=== PATIENT | female | born 1965 | race Caucasian/White ===

== ENCOUNTER → 2018-11-23 14:01 | Outpatient (CLI) | payer BC, SELFPAY ==
[2018-11-23 14:31] LABS: Amphetamine/Metha Screen,Urine Negative ng/mL (<1000); Barbiturates Screen,Urine Negative ng/mL (<200); Benzodiazepines Screen,Urine Negative ng/mL (<200); Cannabinoid Screen,Urine Negative ng/mL (<50); Cocaine Screen,Urine Negative ng/mL (<300); Methadone Screen,Urine Negative ng/mL (<300); Opiate Screen,Urine Negative ng/mL (<300); Phencyclidine Screen,Urine Negative ng/mL (<25)
== END ==
PROVIDERS: Visit Provider Nurse Practitioner Family
DX: Z79.899 Other long term (current) drug therapy (principal)
CPT/HCPCS: 80305

== ENCOUNTER → 2019-01-02 17:37 | Outpatient (CLI) | payer BC, SELFPAY ==
[2019-01-02 19:10] LABS: Amphetamine/Metha Screen,Urine Negative ng/mL (<1000); Barbiturates Screen,Urine Negative ng/mL (<200); Benzodiazepines Screen,Urine Negative ng/mL (<200); Cannabinoid Screen,Urine Negative ng/mL (<50); Cocaine Screen,Urine Negative ng/mL (<300); Methadone Screen,Urine Negative ng/mL (<300); Opiate Screen,Urine Negative ng/mL (<300); Phencyclidine Screen,Urine Negative ng/mL (<25)
== END ==
PROVIDERS: Visit Provider Nurse Practitioner Family
DX: Z79.899 Other long term (current) drug therapy (principal)
CPT/HCPCS: 80305

== ENCOUNTER → 2019-01-30 09:17 | Outpatient (CLI) | payer BC, SELFPAY ==
--- NOTE | 2019-01-30 09:24 | MM_ITS ---
MM Dig screening mamm BI w/CAD CAD Screening COMPARISON: Baseline digital mammogram 06/25/2010 INDICATION: There is no personal or family history of breast cancer TECHNIQUE: Standard CC and MLO images were obtained. R2 CAD reviewed. FINDINGS: Diffuse heterogenic fibroglandular densities are seen throughout both breast somewhat lessening the sensitivity of mammography. The findings are bilateral and symmetrical. There is no suspicious lesion and no suspicious microcalcifications. IMPRESSION: Heterogenic dense parenchymal pattern with no suspicious lesion seen BI-RADS Category: 1 Negative RECOMMENDED FOLLOW-UP: 1YR - 1 YEAR FOLLOW-UP (A letter has been sent to the patient regarding results of the study.)
[2019-01-30 15:03] LABS: Basophils % 0.7 % (0.1-2.0); Eosinophils # 0.2 K/mm3 (0.0-0.4); Eosinophils % 2.6 % (0.1-12.0); Hemoglobin 14.5 g/dL (12.2-16.2); Lymphocytes # 1.5 K/mm3 (0.7-4.5); Lymphocytes % 25.3 % (10-50); Mean Corpuscular HGB Conc 30.3 g/dL (31.8-35.4); Mean Corpuscular Hemoglobin 27.5 pg (27.0-31.2); Mean Corpuscular Volume 90.7 fl (81-99); Mean Platelet Volume 8.8 fl (7.4-10.4); Monocytes # 0.3 K/mm3 (0.1-1.0); Monocytes % 5.1 % (1.7-9.3); Neutrophils # 3.8 K/mm3 (1.8-7.8); Neutrophils % 66.3 % (37.0-80.0); Platelet Count 271 K/mm3 (142-424); Red Blood Count 5.29 M/mm3 (4.20-5.40); Red Cell Distribution Width 13.6 % (11.5-17.5); White Blood Count 5.8 K/mm3 (4.8-10.8)
[2019-01-30 15:17] LABS: Alanine Aminotransferase 22 U/L (12-78); Albumin Level 3.5 gm/dL (3.4-5.0); Albumin/Globulin Ratio 1.1 (1.1-1.8); Alkaline Phosphatase 84 U/L (46-116); Anion Gap 14.6 mEq/L (5-15); Aspartate Amino Transferase 12 U/L (15-37); Bilirubin,Total 0.3 mg/dL (0.2-1.0); Blood Urea Nitrogen 14 mg/dL (7-18); Carbon Dioxide 27 mmol/L (21.0-32.0); Chloride 106 mmol/L (98-107); Chol/HDL Ratio 5.5 (1-3.5); Cholesterol 213 mg/dL (140-200); Creatinine,Serum 0.89 mg/dL (0.55-1.02); Estimated Glomerular Filt Rate 66 ml/min (>60); GFR (African American) 80 ML/MIN (>60); Globulin 3.1 gm/dl (1.3-3.2); Glucose 91 mg/dL (74-106); HDL Cholesterol 39 mg/dL (29-89); LDL Cholesterol 149 mg/dL (0-130); Potassium 4.6 mmoL/L (3.5-5.1); Sodium 143 mmol/L (136-145); Total Protein,Serum 6.6 gm/dL (6.4-8.2); Triglycerides 125 mg/dL (30-200); VLDL Cholesterol 25 mg/dL (0-40)
[2019-01-30 16:53] LABS: Erythrocyte Sedimentation Rate 6 mm/hr (0-30)
[2019-01-30 19:03] LABS: Amphetamine/Metha Screen,Urine Negative ng/mL (<1000); Barbiturates Screen,Urine Negative ng/mL (<200); Benzodiazepines Screen,Urine Negative ng/mL (<200); Cannabinoid Screen,Urine Negative ng/mL (<50); Cocaine Screen,Urine Negative ng/mL (<300); Methadone Screen,Urine Negative ng/mL (<300); Opiate Screen,Urine Negative ng/mL (<300); Phencyclidine Screen,Urine Negative ng/mL (<25)
== END ==
PROVIDERS: PCP Emergency Medicine; Visit Provider Nurse Practitioner Family
DX: Z12.31 Encounter for screening mammogram for malignant neoplasm of breast (principal); R53.83 Other fatigue; R25.2 Cramp and spasm; Z79.899 Other long term (current) drug therapy
CPT/HCPCS: 77067; 80053; 80061; 80305; 82652; 84439; 84443; 85025; 85651

== ENCOUNTER → 2019-01-30 14:29 | Outpatient (CLI) | payer BC, SELFPAY | PROVIDERS: Visit Provider Nurse Practitioner Family | DX: R53.83 Other fatigue (principal) | CPT/HCPCS: 80053; 80061; 80305; 82652; 84439; 84443; 85025; 85651 ==

== ENCOUNTER → 2019-05-02 11:42 | Outpatient (CLI) | payer BC, SELFPAY ==
--- NOTE | 2019-05-02 11:46 | XR_ITS ---
PROCEDURE: XR MULTIPLE SPINE 6+V CLINICAL INDICATION: back pain Neck pain, back pain COMPARISON: No exams were available for comparison FINDINGS: Lumbar spine: Mild degenerative disc disease L3-L4 L4-L5 and L5-S1. Flexion and extension views show no abnormal subluxation. There is mild retrolisthesis of L3 on L4 which does not significantly change in flexion or extension. Cervical spine: Multilevel degenerative disc disease at C4-C5 C5-C6 and C6-C7. Facet arthritic changes are present from C2-C7. No fracture or dislocation. Thoracic spine: Mild upper thoracic curvature convex left and midthoracic curvature convex right. Multilevel degenerative disc disease is present in the midthoracic spine with endplate osteophytes anteriorly. No fracture or dislocation. IMPRESSION: Degenerative changes of the cervical, thoracic, and lumbar spine as detailed above Dictated by: Gilberto Sykes MD 05/02/2019 12:58 Signed by: <Electronically signed by Gilberto Sykes MD in [facility]> 05/02/2019 12:58
== END ==
PROVIDERS: PCP Emergency Medicine; Visit Provider Nurse Practitioner Family
DX: M54.6 Pain in thoracic spine (principal); M54.2 Cervicalgia; M54.5 Low back pain; G89.29 Other chronic pain
CPT/HCPCS: 72084

== ENCOUNTER → 2019-07-19 16:37 | Outpatient (CLI) | payer BC, SELFPAY ==
[2019-07-19 20:14] LABS: Amphetamine/Metha Screen,Urine Negative ng/mL (<1000); Barbiturates Screen,Urine Negative ng/mL (<200); Benzodiazepines Screen,Urine Negative ng/mL (<200); Cannabinoid Screen,Urine Negative ng/mL (<50); Cocaine Screen,Urine Negative ng/mL (<300); Methadone Screen,Urine Negative ng/mL (<300); Opiate Screen,Urine Negative ng/mL (<300); Phencyclidine Screen,Urine Negative ng/mL (<25)
== END ==
PROVIDERS: Visit Provider Nurse Practitioner Family
DX: Z79.899 Other long term (current) drug therapy (principal)
CPT/HCPCS: 80305

== ENCOUNTER 2019-08-24 15:30 | Outpatient (RCR) | payer BC, SELFPAY ==
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
== END 2019-08-24 15:35 | disposition home or self-care (01) ==
LOC: PT 15:30
PROVIDERS: Visit Provider Nurse Practitioner Family
DX: M51.36 Other intervertebral disc degeneration, lumbar region (principal); M54.6 Pain in thoracic spine; M54.2 Cervicalgia
CPT/HCPCS: 97010; 97014; 97110; 97163; 97760; G0283

== ENCOUNTER → 2020-04-14 13:31 | Outpatient (CLI) | payer BC, SELFPAY ==
[2020-04-14 15:10] VITALS: PULSE 58; PULSE 63
== END ==
PROVIDERS: PCP Emergency Medicine; Visit Provider Emergency Medicine
DX: J44.9 Chronic obstructive pulmonary disease, unspecified (principal); R06.09 Other forms of dyspnea
CPT/HCPCS: 94060; 94618; 94640; 94727; 94729

== ENCOUNTER → 2020-12-22 15:11 | Outpatient (CLI) | payer BC, SELFPAY ==
[2020-12-22 15:21] LABS: Basophils % 0.4 % (0.1-2.0); Eosinophils # 0.2 K/mm3 (0.0-0.4); Eosinophils % 2.2 % (0.1-12.0); Hematocrit 47.2 % (37.0-47.0); Lymphocytes # 1.6 K/mm3 (0.7-4.5); Lymphocytes % 22.4 % (10-50); Mean Corpuscular HGB Conc 31.8 g/dL (31.8-35.4); Mean Corpuscular Hemoglobin 28.4 pg (27.0-31.2); Mean Corpuscular Volume 89.2 fl (81-99); Mean Platelet Volume 9.5 fl (7.4-10.4); Monocytes # 0.4 K/mm3 (0.1-1.0); Monocytes % 5.8 % (1.7-9.3); Neutrophils # 4.8 K/mm3 (1.8-7.8); Neutrophils % 69.2 % (37.0-80.0); Platelet Count 252 K/mm3 (142-424)
[2020-12-22 15:28] LABS: Chloride 109 mmol/L (98-107)
[2020-12-22 15:29] LABS: Potassium 4.9 mmoL/L (3.5-5.1); Sodium 140 mmol/L (136-145)
[2020-12-22 15:31] LABS: Alanine Aminotransferase 15 U/L (12-78); Alkaline Phosphatase 96 U/L (38-126); Anion Gap 14.9 mEq/L (5-15); Aspartate Amino Transferase 28 U/L (14-36); Bilirubin,Total 0.4 mg/dl (0.2-1.3); Blood Urea Nitrogen 14 mg/dl (7-17); Carbon Dioxide 21 mmol/L (22.0-30.0); Cholesterol 223 mg/dl (140-200); Estimated Glomerular Filt Rate 65 ml/min (>60); GFR (African American) 79 ML/MIN (>60); Triglycerides 100 mg/dl (30-150); VLDL Cholesterol 20 mg/dL (0-40)
[2020-12-22 15:32] LABS: Albumin Level 4.4 g/dl (3.5-5.0); Albumin/Globulin Ratio 1.7 (1.1-1.8); Calcium 9.7 mg/dl (8.4-10.2); Globulin 2.6 g/dL (1.3-3.2); Glucose 99 mg/dl (74-100); HDL Cholesterol 56 mg/dl (40-60)
[2020-12-22 15:42] LABS: 25-OH Vitamin D, Total 39.2 ng/mL (30-100)
[2020-12-22 15:45] LABS: Direct LDL Cholesterol 145.85 mg/dL (100-129)
[2020-12-22 15:59] LABS: Free T4 (Free Thyroxine) 1.57 ng/dl (0.78-2.19)
[2020-12-22 16:06] LABS: Thyroid Stimulating Hormone 3.21 uIU/mL (0.465-4.68)
== END ==
PROVIDERS: Visit Provider Emergency Medicine
DX: G62.9 Polyneuropathy, unspecified (principal); E55.9 Vitamin D deficiency, unspecified
CPT/HCPCS: 80053; 80061; 82306; 84439; 84443; 85025

== ENCOUNTER → 2021-03-30 12:51 | Outpatient (CLI) | payer BC, SELFPAY ==
--- NOTE | 2021-03-30 12:54 | CA_ITS ---
APPROVED REPORT EXAM: Comprehensive 2D, Doppler, and color-flow Echocardiogram [employer] Maker: Purnima Jaquez CRT Ht: 5 ft 6 in Wt: 134lbs BSA: 1.69 BP: 102/64 mmHg Indications: Syncope, smoker, dizziness 2D Dimensions LVOT 1.86 cm (M/F) 1.5-2.5 LA Volume 11.20 mL LA Volume Index 6.60 mL/m2 (M/F) 16-34 M-Mode Dimensions RVDd 2.66 cm (0.9-2.6) LA Diam 2.86 cm (1.9-4.0) LVDd 3.51 cm (3.5-5.7) Ao Diam 3.11 cm (2.0-3.7) LVDs 2.47 cm (3.5-5.7) IVSd 1.47 cm (0.6-1.1) PWd 1.03 cm (0.6-1.1) EF (Teich) 57.60% FS 29.60% EDV (Teich) 51.20 mL TAPSE 1.51 (<1.7) ESV (Teich) 21.70 mL LV Diastology E Decel Time 263.00 (160-240 msec) E/A Ratio 0.62 MED E' 4.90 (< 7 cm/sec) MED A' 11.30 cm/s E'/MED E' Ratio 11.49 (>14) LAT E' 7.20 (<10 cm/sec) LAT A' 21.50 cm/s E/LAT E' Ratio 7.82 (>14) Aortic Valve AO Peak GR. 9.80 mmHg Mitral Valve MV E Max Raji. 56.00 (40-130 cm/s) MV A Velocity 91.00 (40-130 cm/s) E/A Ratio 0.62 MV Decel. Time 263.00 (160-240 ms) MV PHT 77.00 ms Tricuspid Valve TR P. Velocity 217.00 cm/s RAP Estimate 10.00 mmHg RVSP 28.80 mmHg Left Ventricle Left atrium is normal size, left ventricle is normal size, there is no concentric left ventricular hypertrophy, visually estimated ejection fraction 55% with no regional wall motion abnormality, diastolic parameters are inconclusive. Right Ventricle Right atrium and right ventricle are normal size and contractility. Aortic Valve Aortic valve is minimally thickened and fibrosed, there is no aortic stenosis or aortic insufficiency. Mitral Valve Mitral valve is grossly normal, there is trace mitral regurgitation. Tricuspid Valve Tricuspid valve grossly normal, there is trace tricuspid regurgitation, tricuspid regurgitation jet velocity is inadequate for calculation of the right ventricular systolic pressure. Pulmonic Valve Pulmonic valve is poorly visualized. Great Vessels Aortic root is normal size. Pericardium No significant pericardial effusion noted. Conclusion 1. Normal left ventricular size, preserved left ventricular systolic function, visually estimated ejection fraction 55% with no regional wall motion abnormality, diastolic parameters are inconclusive. 2. Trace mitral and tricuspid regurgitation. 3. No significant pericardial effusion noted. Electronically signed by : Darrel Kelly, 03/30/2021 21:54:30
--- NOTE | 2021-03-30 13:27 | MR_ITS ---
PROCEDURE: MR HEAD/BRAIN WO CON CLINICAL INDICATION: dizziness Frequent falls COMPARISON: No exams were available for comparison TECHNIQUE: Routine multiplanar multi echo sequences are performed without gadolinium enhancement. FINDINGS: No restricted diffusion that would indicate an area of acute infarction. No midline shift, mass effect, intracranial hemorrhage, or hydrocephalus. The cerebellopontine angles, cerebellum, and brainstem have an unremarkable appearance. There are 2 tiny T2 white matter hyperintensities in the right frontal lobe nonspecific and may represent small ischemic gliotic foci. The pituitary, optic chiasm, corpus callosum, and craniocervical junction have an unremarkable appearance. There is degenerative disc disease in the cervical spine with 2-3 mm retrolisthesis of C4 on C5 with canal stenosis at that level. No mastoid effusion or sinus air-fluid level. No obvious orbital mass. IMPRESSION: No acute intracranial findings. Canal stenosis with degenerative disc disease at C4-C5 Dictated by: Gilberto Sykes MD 03/30/2021 18:44 Gilberto Sykes MD in [facility] 03/30/2021 18:44
== END ==
PROVIDERS: PCP Emergency Medicine; Visit Provider Emergency Medicine
DX: R55 Syncope and collapse (principal); R42 Dizziness and giddiness
CPT/HCPCS: 70551; 93306

== ENCOUNTER → 2021-07-17 12:52 | Outpatient (CLI) | payer BC, SELFPAY ==
--- NOTE | 2021-07-17 12:58 | XR_ITS ---
PROCEDURE: XR HIP RT 2-3V W/PELVIS CLINICAL INDICATION: hip pain COMPARISON: CR XR HIP LT 2-3V W/PELVIS from 07/17/2021 FINDINGS: No fracture or dislocation is evident. There is minor asymmetrical joint space narrowing. The SI joints and symphysis pubis appear grossly normal. No lytic or blastic change. Unremarkable soft tissues. IMPRESSION: No acute findings. Minor osteoarthritic change right hip Dictated by: Dr. Zach Quiroga MD 07/17/2021 13:26 Dr. Zach Quiroga MD in [place] 07/17/2021 13:26
--- NOTE | 2021-07-17 12:58 | XR_ITS ---
PROCEDURE: XR HIP LT 2-3V W/PELVIS CLINICAL INDICATION: hip pain COMPARISON: Right hip same date FINDINGS: No fracture or dislocation is evident. No significant degenerative change. No lytic or blastic change. Unremarkable soft tissues. IMPRESSION: No acute findings. Dictated by: Dr. Zach Quiroga MD 07/17/2021 13:26 Dr. Zach Quiroga MD in [facility] 07/17/2021 13:26
== END ==
PROVIDERS: PCP Emergency Medicine; Visit Provider Emergency Medicine
DX: M25.552 Pain in left hip (principal); M25.551 Pain in right hip; R42 Dizziness and giddiness
CPT/HCPCS: 73502; 93225; 93226

== ENCOUNTER → 2021-09-30 13:44 | Outpatient (CLI) | payer BC, SELFPAY ==
--- NOTE | 2021-09-30 13:44 | MR_ITS ---
FINAL REPORT CLINICAL HISTORY: dizziness, falls 12ml prohance injected lot:[id number] EXP:JUN 2023 COMPARISON: 03/30/2021 FINDINGS: Multiplanar MR imaging of the brain was performed without and with contrast. There is no evidence of intracranial hemorrhage or mass. There are few tiny subtle scattered foci of increased signal in the deep white matter which are nonspecific, may represent mild chronic ischemic/gliotic changes. No abnormal extra-axial fluid collection is seen. The ventricular size is within normal limits. There is no evidence of shift of the midline structures. The posterior fossa and brainstem have an unremarkable appearance. No area of abnormal restricted diffusion is identified. No abnormal contrast enhancement is seen. Normal major vessel vascular flow voids are noted. There is mild chronic frontal and ethmoid sinusitis. No fluid levels are identified. IMPRESSION: No acute intracranial abnormality identified. Mild chronic ischemic/gliotic changes. Reviewed, Interpreted and Dictated by Cory Soto MD Transcribed by Aby Becerra Authenticated by Cory Soto MD on 09/30/2021 04:36:30 PM [facility]
--- NOTE | 2021-09-30 14:47 | CA_ITS ---
FINAL REPORT TECHNIQUE: Color Doppler, duplex Doppler and hernandez scale sonography of the bilateral neck arterial vasculature was performed. Velocities were measured in the carotid arteries. Stenosis evaluation based on the validated velocity criteria. CLINICAL HISTORY: Bruit, Dizziness, Smoker FINDINGS: The peak systolic velocity of the right common carotid artery is 67 cm/s. The peak systolic velocity of the right internal carotid artery is 97 cm/s and end diastolic velocity 44 cm/s. A small amount of plaque is present. The right external carotid artery is patent. The right vertebral artery is patent with antegrade flow. The peak systolic velocity of the left common carotid artery is 78 cm/s. The peak systolic velocity of the left internal carotid artery is 174 cm/s and end diastolic velocity 75 cm/s. A moderate amount of plaque is present. The left external carotid artery is patent.The left vertebral artery is patent with antegrade flow. IMPRESSION: 50-69% carotid stenosis on the left. Less than 50% carotid stenosis on the right. If indicated, CTA or MRA could further evaluate. Reviewed, Interpreted and Dictated by Cory Soto MD Transcribed by Aby Becerra Authenticated by Cory Soto MD on 09/30/2021 04:36:37 PM [facility]
== END ==
PROVIDERS: PCP Emergency Medicine; Visit Provider Emergency Medicine
DX: R42 Dizziness and giddiness (principal); R09.89 Other specified symptoms and signs involving the circulatory and respiratory systems
CPT/HCPCS: 70553; 93880; A9576

== ENCOUNTER → 2021-10-15 15:37 | Outpatient (CLI) | payer BC, SELFPAY ==
--- NOTE | 2021-10-15 15:37 | MR_ITS ---
FINAL REPORT CLINICAL HISTORY: abn MRI head. LIGHTHEADEDNESS WHEN WALKING X1YR. PRIOR MR 09-30-21 FINDINGS: Multiple projection images of the brain arterial vasculature were obtained without contrast. The raw data images were also reviewed. The distal internal carotid, distal vertebral and basilar arteries have an unremarkable appearance without evidence of significant stenosis or occlusion. The proximal anterior, middle and posterior cerebral arteries have an unremarkable appearance. There is no evidence of significant stenosis or major branch occlusion. No aneurysm or vascular malformation is identified. IMPRESSION: Unremarkable MR angiogram of the head. Reviewed, Interpreted and Dictated by Ihsan Brooks III, MD Transcribed by Aby Becerra Authenticated by Ihsan Brooks III, MD on 10/15/2021 04:36:57 PM [facility]
== END ==
PROVIDERS: PCP Emergency Medicine; Visit Provider Emergency Medicine
DX: R93.0 Abnormal findings on diagnostic imaging of skull and head, not elsewhere classified (principal); R42 Dizziness and giddiness
CPT/HCPCS: 70544

== ENCOUNTER → 2022-11-02 14:47 | Outpatient (CLI) | payer BC, SELFPAY ==
--- NOTE | 2022-11-02 14:47 | MR_ITS ---
FINAL REPORT TECHNIQUE: Multiplanar and multisequence MR imaging was performed through the lumbar spine before and after contrast administration. CLINICAL HISTORY: pain LOWER BACK PAIN WITH LEFT LEG NUMBNESS X 6 MONTHS FINDINGS: There is grade 1 anterior spondylolisthesis of L4 on 5. The vertebral body heights are preserved. There is no bone marrow edema. There are degenerative endplate changes, most pronounced at L4-5 and L5-S1. Bone marrow is otherwise normal. The cord terminates at L2. There is normal signal within the distal cord. There is no abnormal enhancement in the distal cord. There is no acute paraspinal abnormality. There is no loculated fluid collection. L1-L2: No evidence of disc herniation, canal stenosis or neural foraminal narrowing. L2-L3: An annular disc bulge is present with bilateral facet osteoarthropathy. There is mild left neural foraminal narrowing. L3-L4: An annular disc bulge is present with degenerative endplate changes and facet osteoarthropathy. There is mild left greater than right neural foraminal narrowing. L4-L5: An annular disc bulge is present with degenerative endplate changes and facet osteoarthropathy. There is mild right and moderate left neural foraminal narrowing. L5-S1: An annular disc bulge is present with degenerative endplate changes and facet osteoarthropathy. There is moderate to severe right and mild left neural foraminal narrowing. IMPRESSION: Grade 1 anterior spondylolisthesis of L4 on 5. Multilevel degenerative disc disease. Reviewed, Interpreted and Dictated by Debbie Patel MD Transcribed by Aby Becerra Authenticated and [facility]
[2022-11-02 16:45] LABS: Basophils # 0.1 K/mm3 (0-0.2); Eosinophils # 0.1 K/mm3 (0.0-0.4); Eosinophils % 1.9 % (0.1-12.0); Hematocrit 43.2 % (37.0-47.0); Hemoglobin 13.8 g/dL (12.2-16.2); Lymphocytes # 1.7 K/mm3 (0.7-4.5); Lymphocytes % 27.9 % (10-50); Mean Corpuscular HGB Conc 31.9 g/dL (31.8-35.4); Mean Corpuscular Hemoglobin 28.4 pg (27.0-31.2); Mean Corpuscular Volume 88.9 fl (81-99); Monocytes # 0.4 K/mm3 (0.1-1.0); Monocytes % 6.1 % (1.7-9.3); Neutrophils # 3.9 K/mm3 (1.8-7.8); Neutrophils % 63.1 % (37.0-80.0); Platelet Count 253 K/mm3 (142-424); Red Blood Count 4.86 M/mm3 (4.20-5.40); Red Cell Distribution Width 13.8 % (11.5-17.5); White Blood Count 6.1 K/mm3 (4.8-10.8)
[2022-11-02 17:00] LABS: Alanine Aminotransferase 16 U/L (12-78); Albumin Level 4.3 g/dl (3.5-5.0); Albumin/Globulin Ratio 1.7 (1.1-1.8); Alkaline Phosphatase 82 U/L (38-126); Anion Gap 3.8 mEq/L (5-15); Aspartate Amino Transferase 24 U/L (14-36); Bilirubin,Total 0.6 mg/dl (0.2-1.3); Blood Urea Nitrogen 15 mg/dl (7-17); Calcium 9.1 mg/dl (8.4-10.2); Carbon Dioxide 29 mmol/L (22.0-30.0); Chloride 113 mmol/L (98-107); Chol/HDL Ratio 4.5 (1-3.5); Cholesterol 234 mg/dl (140-200); Estimated Glomerular Filt Rate 65 ml/min (>60); GFR (African American) 78 ML/MIN (>60); Globulin 2.5 g/dL (1.3-3.2); Glucose 87 mg/dl (74-100); HDL Cholesterol 52 mg/dl (40-60); Potassium 4.8 mmoL/L (3.5-5.1); Sodium 141 mmol/L (136-145); Total Protein,Serum 6.8 g/dl (6.3-8.2); Triglycerides 106 mg/dl (30-150); VLDL Cholesterol 21 mg/dL (0-40)
[2022-11-02 17:11] LABS: Direct LDL Cholesterol 153.04 mg/dL (100-129)
[2022-11-02 17:17] LABS: Free T4 (Free Thyroxine) 1.15 ng/dl (0.78-2.19)
[2022-11-02 17:18] LABS: 25-OH Vitamin D, Total 31.7 ng/mL (30-100)
[2022-11-02 18:50] LABS: Erythrocyte Sedimentation Rate 6 mm/hr (0-30)
== END ==
PROVIDERS: PCP Emergency Medicine; Visit Provider Emergency Medicine
DX: E03.9 Hypothyroidism, unspecified (principal); M54.16 Radiculopathy, lumbar region; R53.83 Other fatigue; K59.00 Constipation, unspecified
CPT/HCPCS: 36415; 72158; 76376; 80053; 80061; 82306; 84439; 84443; 85025; 85651; A9576

== ENCOUNTER 2022-11-29 15:00 | Outpatient (RCR) | payer BC, SELFPAY ==
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
--- NOTE | 2022-10-28 13:37 | HMH.RHREAS ---
Rehab Reassessment Rehab OP Re-assessment Start: 10/28/22 11:26 Freq: Status: Active Protocol: Document 10/28/22 11:27 MULUNORANATHALY (Rec: 10/28/22 11:44 DONNANATHALY [id number]) E-signed By Amarjit Flores, PT Rehab Re-assessment Subjective Subjective Pt reports 5/10 LBP on VAS and feels 80% better overall functionally since I eval Objective Objective Notes AROM: LUMBAR SPINE FLX 0-35, EXT 0-20, B/L SB 0-25 MMT: LEFT HIP FLX 4-/5, LEFT KNEE EXT 4/5, L KNEE FLX 4/5, L DF 4+-5/5 TTP: LEFT QL 1-2/4, LEFT PIRI/ GLUT 1/4 Assessment Progress Assessment Progressing as Expected Assessment Notes IMPROVED AROM, STRENGTH, AND TTP Patient goals met STG'S 2/2 LTG'S 3/7 Goals Not Met LTG'S 4/7 Plan Plan Pt to continue w/skilled P.T. to make further improvements in AROM, strength, and TTP to allow for optimal function Frequency of Therapy 1-2x/wk Duration of therapy 3-5wks Time and Billing Re-Eval Time 12 Re-Eval Billing Units 1 PHYSICIAN CERTIFICATION: I certify the specified therapy services for Sonja Russell are required, authorized, and reviewed every 30 days.
== END 2022-11-29 15:05 | disposition home or self-care (01) ==
LOC: PT 15:00
PROVIDERS: PCP Emergency Medicine; Visit Provider Emergency Medicine
DX: M54.16 Radiculopathy, lumbar region (principal)
CPT/HCPCS: 97010; 97014; 97110; 97163; 97164; 97530; G0283

== ENCOUNTER → 2023-01-18 11:58 | Outpatient (CLI) | payer BC, SELFPAY ==
[2023-01-18 13:31] LABS: Adenovirus,PCR Not Detected (NotDetected); Bordetella Pertussis Not Detected (NotDetected); Chlamydophila Pneumoniae, PCR Not Detected (NotDetected); Coronavirus 19, PCR Not Detected (NotDetected); Coronavirus 229E Not Detected (NotDetected); Coronavirus NL63 Not Detected (NotDetected); Coronavirus OC43 Not Detected (NotDetected); Coronovirus HKU1,PCR Not Detected (NotDetected); Human Metapneumovirus Not Detected (NotDetected); Influenza A, PCR Not Detected (NotDetected); Influenza AH1, 2009 Not Detected (NotDetected); Influenza AH1, PCR Not Detected (NotDetected); Influenza AH3,PCR Not Detected (NotDetected); Influenza B, PCR Not Detected (NotDetected); Mycoplasma Pneumoniae, PCR Not Detected (NotDetected); Parainfluenza 1, PCR Not Detected (NotDetected); Parainfluenza 2, PCR Not Detected (NotDetected); Parainfluenza 3, PCR Not Detected (NotDetected); Parainfluenza 4, PCR Not Detected (NotDetected); Respiratory Syncytial Virus Not Detected (NotDetected)
[2023-01-19 01:17] LABS: Rhinovirus/Enterovirus Detected (NotDetected)
== END ==
PROVIDERS: PCP Emergency Medicine; Visit Provider Emergency Medicine
DX: R06.09 Other forms of dyspnea (principal); R05.9 Cough, unspecified; R51.9 Headache, unspecified; R19.7 Diarrhea, unspecified; R11.0 Nausea; E86.0 Dehydration; B34.1 Enterovirus infection, unspecified
CPT/HCPCS: 87581; 87632; 87635; 87798; C9803; U0003; U0005

== ENCOUNTER → 2023-04-20 09:41 | Outpatient (POV) | payer BC, SELFPAY ==
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
[2023-04-20 10:07] VITALS: BP 148/98; PULSE 81; RESP 18; O2SAT 97; BMI 19.7
== END ==
PROVIDERS: PCP Emergency Medicine; Visit Provider Nurse Practitioner Family
DX: M54.41 Lumbago with sciatica, right side (principal); G89.29 Other chronic pain; M51.16 Intervertebral disc disorders with radiculopathy, lumbar region; M47.26 Other spondylosis with radiculopathy, lumbar region
CPT/HCPCS: 99202; G0463

== ENCOUNTER 2023-05-17 10:40 | Day surgery (SDC) | payer BC, SELFPAY ==
[2023-05-17 11:24] VITALS: BP 136/85; PULSE 73; RESP 16; TEMP 36.4; O2SAT 97; BMI 19.7
[2023-05-17 11:54] VITALS: BP 130/80; PULSE 76; RESP 18; O2SAT 98
[2023-05-17 11:55] VITALS: BP 130/80; PULSE 75; RESP 18; O2SAT 98
--- NOTE | 2023-05-17 11:59 | EXP.PAIN.PRO ---
Procedure Date: 05/17/23 Time: 11:45 Anesthesiologist:: Julio Schroeder CRNA Complications:: None Pre-procedure Diagnosis:: Degenerative disc lumbar spine multilevels. Lumbar radiculopathy Post-procedure Diagnosis:: Same. Indications for Procedure:: Patient is a very pleasant 58-year-old female comes our clinic today for L5-S1 lumbar epidural steroid injection. Patient complains of low back pain as well as bilateral hip and leg radicular symptoms. Weakness in the lower legs. She rates her pain 6/10. Procedure Details:: Procedure: Lumbar epidural steroid injection under fluoroscopy Informed consent was obtained and the risks and benefits of the procedure were explained to the patient. The patient was taken to the procedure room and noninvasive monitors placed, including noninvasive blood pressure cuff and pulse oximeter. The back was viewed using C-arm Fluoroscopy and prepped using Chloraprep as a cleansing solution and the L4-L5 interspace was palpated. Skin and subcutaneous tissues were anesthetized using lidocaine 1.5% and a 25-gauge needle. After this, an 18-gauge Touhy epidural needle was placed into the L4-L5 interspace and advanced using fluoroscopic guidance and loss of resistance to air until the epidural space was encountered. After confirmation of needle placement in the epidural space, with dye, a solution containing normal saline, 3 mL and Depo-Medrol 80 mg were incrementally injected into the lumbar epidural space. The patient tolerated the procedure well with no complications. The patient was observed in the Pain Clinic and then discharged home neurologically intact. Plan and Disposition:: Patient was discharged without incident.
[2023-05-17 12:06] VITALS: BP 121/91; PULSE 71; RESP 20
== END 2023-05-17 12:08 | disposition home or self-care (01) ==
PROVIDERS: PCP Emergency Medicine; Visit Provider Nurse Anesthetist, Certified Registered
DX: M51.16 Intervertebral disc disorders with radiculopathy, lumbar region (principal)
CPT/HCPCS: 62323; J1040

== ENCOUNTER → 2023-06-01 13:30 | Outpatient (POV) | payer BC, SELFPAY ==
--- NOTE | 2023-06-01 14:05 | EXP.PAIN.SOA ---
[facility] Pain Management SOAP Note Subjective:: Patient is a pleasant 58-year-old female who presents today for follow-up of lumbar epidural steroid injection L4-L5 on 05/17/2023. We are currently treating the patient for degenerative disc disease of lumbar spine with lumbar radiculopathy symptoms, lumbar facet arthropathy, bilateral hip pain. Today she rates her pain a 7 out of 10. Patient states she has had 100% improvement of her low back and leg pain following this injection. She states that she has been able to move around and increase her activity with decreased pain symptoms. Patient does state overall today she is doing well. Patient is currently managed with gabapentin [address] Da Silva's office. She denies any side effects from this medication. Patient was also prescribed compounding cream. Her Vincent is [id number]. Its been reviewed and appropriate. Review of Systems: General: No recent weight changes, no fever, no sleep disturbances Respiratory: No cough, no shortness of air, no recurring pulmonary infections Cardiovascular/peripheral vascular: No chest pain, no palpitations, no edema, no shortness of breath Gastrointestinal: No new onset incontinence, normal bowel movements reported Genitourinary: No new onset incontinence Musculoskeletal: Low back pain Psychiatric: [Normal mood/affect] Neurological: [Denies weakness in extremities], [denies balance issues] Objective:: Physical Exam: General: Alert and oriented x3, no acute distress, pleasant and cooperative Lungs: Respirations even and unlabored, symmetrical chest expansion Eyes: PERRL Musculoskeletal: Flexion and extension of lumbar [spine] somewhat guarded secondary to pain, [antalgic gait noted] Neurological: Speech clear, no gross sensory deficit Assessment:: Degenerative disc disease of lumbar spine with lumbar radiculopathy symptoms, lumbar facet arthropathy, bilateral hip pain Plan:: Patient has had significant improvement following her lumbar epidural steroid injection and does not require any additional injection therapy at today's visit. Patient will return to clinic in 1 month for reevaluation of symptoms and plan of care. Patient has been instructed to contact the clinic with any concerns before the next appointment. Dr. Green has reviewed this note and agrees with this plan of care. This note was dictated using voice recognition software and make contain errors or omissions. [facility] Disclaimer: The information contained in this section may have been updated after the patient was seen, as this information can be updated by other users. Medical History Back Pain DDD (degenerative disc disease), lumbar Hx of fracture of leg Surgical History History of appendectomy Family History Other No significant family history Social History (Updated 05/17/23 @ 11:24 by Samir Forbes RN) Smoking Status: Current every day smoker tobacco type: cigarettes packs per day: 2 pack-years: 44 alcohol intake: never substance use type: denies use current occupational status: unemployed Travel in the last 8 weeks: None household members: spouse housing: apartment marital status: education level: high school service: No caffeine: Yes special aldo needs: No do you feel safe at home: Yes victim of physical abuse: No victim of emotional abuse: No victim of sexual abuse: No would you like helpful sources: No
[2023-06-01 14:34] VITALS: BP 130/84; PULSE 88; RESP 20; O2SAT 97; BMI 19.7
== END ==
PROVIDERS: PCP Emergency Medicine; Visit Provider Nurse Practitioner Family
DX: M51.16 Intervertebral disc disorders with radiculopathy, lumbar region (principal); M47.26 Other spondylosis with radiculopathy, lumbar region; M25.551 Pain in right hip; M25.552 Pain in left hip
CPT/HCPCS: 99212; G0463

== ENCOUNTER → 2023-07-13 11:01 | Outpatient (POV) | payer BC, SELFPAY ==
--- NOTE | 2023-07-13 11:14 | EXP.PAIN.SOA ---
[facility] Pain Management SOAP Note Subjective:: Patient is a pleasant 58-year-old female who presents today for 1 month follow-up. We are currently treating the patient for degenerative disc disease of lumbar spine with lumbar radiculopathy symptoms, lumbar facet arthropathy, bilateral hip pain. Today she rates her pain a 6 out of 10. Patient denies any new trauma or injury from her last office visit. She did have a lumbar epidural L4-L5 back in the middle of May that did provide 100% improvement. She does state that over the last months she has started to have increased aching along with numbness and tingling into her bilateral legs. Patient states that it is getting back to its baseline. She states the pain does make it difficult to perform activities of daily living such as cooking and cleaning. She is interested in repeating her prior injection. She is currently managed with gabapentin [address] Da Silva's office. She denies any side effects from this medication. Patient was also prescribed compounding cream. She does state that the cream does make a significant improvement however she does not have any additional refills and is requesting some at today's visit. Her Vincent has been reviewed and appropriate. Review of Systems: General: No recent weight changes, no fever, no sleep disturbances Respiratory: No cough, no shortness of air, no recurring pulmonary infections Cardiovascular/peripheral vascular: No chest pain, no palpitations, no edema, no shortness of breath Gastrointestinal: No new onset incontinence, normal bowel movements reported Genitourinary: No new onset incontinence Musculoskeletal: Low back pain, bilateral leg pain Psychiatric: [Normal mood/affect] Neurological: [Denies weakness in extremities], [denies balance issues] Objective:: Physical Exam: General: Alert and oriented x3, no acute distress, pleasant and cooperative Lungs: Respirations even and unlabored, symmetrical chest expansion Eyes: PERRL Musculoskeletal: Flexion and extension of lumbar [spine] somewhat guarded secondary to pain, [antalgic gait noted] Neurological: Speech clear, no gross sensory deficit Assessment:: Degenerative disc disease of lumbar spine with lumbar radiculopathy symptoms, lumbar facet arthropathy, bilateral hip pain Plan:: Patient is experiencing worsening pain in her low back and legs with limited range of motion of her lumbar spine. I have discussed with the patient that she may benefit from repeat lumbar epidural steroid injection. Risk and benefits were discussed with the patient and she would like to proceed forward with this plan of care. Patient is not currently on any blood thinners. Patient did have 100% improvement with her last lumbar epidural lasting approximately a month and a half. I will also make sure that she does have refills of her compounded cream. Patient will be scheduled for an LESI L4-L5. Patient has been instructed to contact the clinic with any concerns before the next appointment. Dr. Green has reviewed this note and agrees with this plan of care. This note was dictated using voice recognition software and make contain errors or omissions. [facility] Disclaimer: The information contained in this section may have been updated after the patient was seen, as this information can be updated by other users. Medical History Back Pain DDD (degenerative disc disease), lumbar Hx of fracture of leg Surgical History History of appendectomy Family History Other No significant family history Social History (Updated 05/17/23 @ 11:24 by Samir Forbes RN) Smoking Status: Current every day smoker tobacco type: cigarettes packs per day: 2 alcohol intake: never substance use type: denies use current occupational status: other Travel in the last 8
[2023-07-13 12:22] VITALS: BP 139/96; PULSE 92; RESP 18; O2SAT 96
== END ==
LOC: SC.PAIN 11:01
PROVIDERS: PCP Emergency Medicine; Visit Provider Nurse Practitioner Family
DX: M51.16 Intervertebral disc disorders with radiculopathy, lumbar region (principal); M47.26 Other spondylosis with radiculopathy, lumbar region; M25.551 Pain in right hip; M25.552 Pain in left hip
CPT/HCPCS: 99212; G0463

== ENCOUNTER 2023-08-23 10:30 | Day surgery (SDC) | payer BC, SELFPAY ==
[2023-08-23 10:46] VITALS: BP 142/91; PULSE 78; RESP 18; TEMP 36.4; O2SAT 98; BMI 22.6
[2023-08-23 10:57] VITALS: BP 149/79; PULSE 81; RESP 18; O2SAT 98
[2023-08-23 10:58] VITALS: BP 149/79; PULSE 82; RESP 18; O2SAT 97
--- NOTE | 2023-08-23 11:03 | EXP.PAIN.PRO ---
Procedure Date: 08/23/23 Time: 10:55 Anesthesiologist:: Julio Schroeder CRNA Complications:: None Pre-procedure Diagnosis:: Degenerative disc lumbar spine multilevels. Lumbar radiculopathy. Lumbar facet arthropathy. Lumbar spondylosis. Post-procedure Diagnosis:: Same. Indications for Procedure:: Patient is a very pleasant 58-year-old female comes our clinic today for lumbar epidural steroid injection at L4-5 level. Patient had significant improvement terms of her overall low back pain as well as bilateral hip and leg radicular symptoms with previous injections at the same level. She rates her pain today 5/10. Procedure Details:: Procedure: Lumbar epidural steroid injection under fluoroscopy Informed consent was obtained and the risks and benefits of the procedure were explained to the patient. The patient was taken to the procedure room and noninvasive monitors placed, including noninvasive blood pressure cuff and pulse oximeter. The back was viewed using C-arm Fluoroscopy and prepped using Chloraprep as a cleansing solution and the L4-L5 interspace was palpated. Skin and subcutaneous tissues were anesthetized using lidocaine 1.5% and a 25-gauge needle. After this, an 18-gauge Touhy epidural needle was placed into the L4-L5 interspace and advanced using fluoroscopic guidance and loss of resistance to air until the epidural space was encountered. After confirmation of needle placement in the epidural space, with dye, a solution containing normal saline, 3 mL and Depo-Medrol 80 mg were incrementally injected into the lumbar epidural space. The patient tolerated the procedure well with no complications. The patient was observed in the Pain Clinic and then discharged home neurologically intact. Plan and Disposition:: Patient was discharged without incident.
[2023-08-23 11:10] VITALS: BP 125/89; PULSE 77; RESP 20; O2SAT 97
== END 2023-08-23 11:02 | disposition home or self-care (01) ==
PROVIDERS: PCP Family Medicine; Visit Provider Nurse Anesthetist, Certified Registered
DX: M51.16 Intervertebral disc disorders with radiculopathy, lumbar region (principal); M47.26 Other spondylosis with radiculopathy, lumbar region
CPT/HCPCS: 62323; J1040

== ENCOUNTER 2023-09-08 09:43 | Outpatient (CLI) | payer BC, SELFPAY ==
[2023-09-08 23:35] LABS: Amphetamine/Metha Screen,Urine Negative ng/ml (<1000); Barbiturates Screen,Urine Negative ng/ml (<200); Benzodiazepines Screen,Urine Negative ng/ml (<200); Cannabinoid Screen,Urine Negative ng/ml (<50); Cocaine Screen,Urine Negative ng/ml (<300); Methadone Screen,Urine Negative ng/ml (<300); Opiate Screen,Urine Negative ng/ml (<300); Phencyclidine Screen,Urine Negative ng/ml (<25)
== END 2023-09-08 23:59 ==
LOC: LAB.DROPOF 09-09 10:38
PROVIDERS: PCP Family Medicine; Visit Provider Family Medicine
DX: Z79.899 Other long term (current) drug therapy (principal)
CPT/HCPCS: 80307

== ENCOUNTER → 2023-09-09 11:22 | Outpatient (POV) | payer BC, SELFPAY ==
[2023-09-09 11:59] VITALS: BP 136/90; PULSE 80; RESP 18; O2SAT 95; BMI 21.6
--- NOTE | 2023-09-09 12:02 | EXP.PAIN.SOA ---
[facility] Pain Management SOAP Note Subjective:: Patient is a pleasant 58-year-old female who presents today for follow-up of lumbar epidural steroid injection L4-L5 on 08/23/2023. We are currently treating the patient for degenerative disc disease of lumbar spine with lumbar radiculopathy symptoms, lumbar facet arthropathy, bilateral hip pain. Today she rates her pain a 7 out of 10. Patient states that she has had at least 90% improvement following this injection and feels like it still continuing to provide additional relief. Patient states she has been able to increase her activity with decreased pain and feels overall more functional. She does state today her pain is all in and around her left hip. Patient describes this as an aching sensation that is worse with increased activity and does give sensations of popping and catching with ambulation. Patient does state that in the past she has had testing on her legs and that was found to have degenerative joint disease throughout. Patient denies any recent imaging of her hips. Patient does state that she feels like it is most likely arthritis related. Patient does state the pain interferes with her ability perform activities of daily living such as cooking and cleaning. Patient does state that she was feels like her leg can go numb and that she is frequently dragging this leg and sometimes it will cause her to stumble. Patient is currently prescribed gabapentin 800 mg from her PCP. Patient denies any side effects from this medication. Patient was tried on the compounded cream however did not notice significant relief. Her Vincent has been reviewed and is appropriate. Review of Systems: General: No recent weight changes, no fever, no sleep disturbances Respiratory: No cough, no shortness of air, no recurring pulmonary infections Cardiovascular/peripheral vascular: No chest pain, no palpitations, no edema, no shortness of breath Gastrointestinal: No new onset incontinence, normal bowel movements reported Genitourinary: No new onset incontinence Musculoskeletal: Left hip pain Psychiatric: [Normal mood/affect] Neurological: [Denies weakness in extremities], [denies balance issues] Objective:: Physical Exam: General: Alert and oriented x3, no acute distress, pleasant and cooperative Lungs: Respirations even and unlabored, symmetrical chest expansion Eyes: PERRL Musculoskeletal: Flexion and extension of left hip somewhat guarded secondary to pain, [antalgic gait noted] Neurological: Speech clear, no gross sensory deficit Assessment:: Degenerative disc disease of lumbar spine with lumbar radiculopathy symptoms, lumbar facet arthropathy, bilateral hip pain Plan:: Patient is experiencing worsening pain in her left hip with limited range of motion. I have discussed with the patient that she may benefit from intra-articular hip injection. Risk and benefits were discussed with the patient and she would like to proceed forward with this plan of care. Patient will be scheduled for an intra-articular hip injection left-sided. Patient has been instructed to contact the clinic with any concerns before the next appointment. Dr. Green has reviewed this note and agrees with this plan of care. This note was dictated using voice recognition software and make contain errors or omissions. [facility] Disclaimer: The information contained in this section may have been updated after the patient was seen, as this information can be updated by other users. Medical History Back Pain DDD (degenerative disc disease), lumbar Hx of fracture of leg right Surgical History History of appendectomy Family History Other No significant family history Social History Smoking Status: Current every day smoker tobacco type: cigarettes packs per day: 2 alcohol intake: never substance use type: denies use current occupational status: other Travel in the last 8 weeks: None household members: spouse housing: apartment marital status: education level: high school service: No caffeine: Yes special aldo needs: No do you feel safe at home: Yes victim of physical abuse: No victim of emotional abuse: No victim of sexual abuse: No would you like helpful sources: No
== END ==
LOC: SC.PAIN 11:22
PROVIDERS: PCP Family Medicine; Visit Provider Nurse Practitioner Family
DX: M51.16 Intervertebral disc disorders with radiculopathy, lumbar region (principal); M47.26 Other spondylosis with radiculopathy, lumbar region; M25.551 Pain in right hip; M25.552 Pain in left hip
CPT/HCPCS: 99212; G0463

== ENCOUNTER 2023-09-27 10:33 | Day surgery (SDC) | payer BC, SELFPAY ==
[2023-09-27 10:45] VITALS: BP 144/93; PULSE 88; RESP 18; TEMP 36.3; O2SAT 99; BMI 23.0
[2023-09-27] MEDS: methylPREDNISolone ACETATE 80MG/ML VIAL 80 MG (10:59)
[2023-09-27] MEDS: BUPIVACAINE 0.25% 10ML INJ 25 MG IJ (10:59)
[2023-09-27] MEDS: LIDOCAINE 1% 5ML PF VIAL 5 ML (10:59)
[2023-09-27 11:10] VITALS: BP 139/89; PULSE 81; RESP 18; O2SAT 99
--- NOTE | 2023-09-27 11:31 | EXP.PAIN.PRO ---
Procedure Date: 09/27/23 Time: 11:05 Anesthesiologist:: Julio Schroeder CRNA Complications:: None Pre-procedure Diagnosis:: Chronic left hip pain. Post-procedure Diagnosis:: Same. Indications for Procedure:: Patient presents today for left intra-articular hip injection. Patient describes left hip pain as intermittent, dull, aching at times. Patient has some associated left leg radicular symptoms as well. Patient responded very well to a recent lumbar epidural steroid injection at the L4-5 level. She has documented disc disease lumbar spine with foraminal stenosis on the left side at 4 5 and 5 S1. I discussed in detail with the patient regarding this injection. I think it would be appropriate to revisit the lumbar epidural steroid injection if in fact this does not bring her any moderate to significant relief going forward. Procedure Details:: Details of the procedure were explained to the patient. The patient was taken to procedure room placed in the supine position. The area over the left hip was cleaned using chlorhexidine as a cleansing solution. Using fluoroscopy guidance a 3 and half inch 22-gauge spinal needle was used to access the left hip joint without difficulty. After negative aspiration 3 cc of 1% lidocaine +3 cc of 0.25% Marcaine and 40 mg of Depo-Medrol was injected. Needle was withdrawn. Band-Aid applied. Patient tolerated procedure without difficulty. There are no complications. Plan and Disposition:: Patient was discharged without incident.
== END 2023-09-27 11:10 | disposition home or self-care (01) ==
PROVIDERS: PCP Family Medicine; Visit Provider Nurse Anesthetist, Certified Registered
DX: M25.552 Pain in left hip (principal); G89.29 Other chronic pain
CPT/HCPCS: 20610; 77002; J1040

== ENCOUNTER → 2023-10-19 11:15 | Outpatient (POV) | payer BC, SELFPAY ==
--- NOTE | 2023-10-19 11:52 | EXP.PAIN.SOA ---
[facility] Pain Management SOAP Note Subjective:: Patient is a pleasant 58-year-old female who presents today for follow-up of left hip intra-articular injection on 09/27/2023. We are currently treating the patient for degenerative disc disease of lumbar spine with lumbar radiculopathy symptoms, lumbar facet arthropathy, bilateral hip pain. Today she rates her pain a 6 out of 10. Patient denies any new trauma or injury. She does state that she has had at least 80% improvement in her left hip symptoms following this injection and feels like that is still helping. Today she does state that most of her pain is down into her lower extremities and describes this as a numbness, tingling sensation that is worse with increased activity. Patient states it seems to always get aggravated with prolonged sitting or standing. Patient does state the pain interferes with her ability perform activities of daily living such as cooking and cleaning. Patient has previously hadlumbar epidural L4-L5 back in September that did provide 90% improvement and has done well over the last month however she feels like this is wearing off. She states the pain does make it difficult to perform activities of daily living such as cooking and cleaning. She is interested in repeating her prior injection. She is currently managed with gabapentin 800 mg from her PCP and compounded cream from our office. She denies any side effects from this medication. Her Vincent has been reviewed and appropriate. Review of Systems: General: No recent weight changes, no fever, no sleep disturbances Respiratory: No cough, no shortness of air, no recurring pulmonary infections Cardiovascular/peripheral vascular: No chest pain, no palpitations, no edema, no shortness of breath Gastrointestinal: No new onset incontinence, normal bowel movements reported Genitourinary: No new onset incontinence Musculoskeletal: Low back pain, bilateral leg pain Psychiatric: [Normal mood/affect] Neurological: [Denies weakness in extremities], [denies balance issues] Objective:: Physical Exam: General: Alert and oriented x3, no acute distress, pleasant and cooperative Lungs: Respirations even and unlabored, symmetrical chest expansion Eyes: PERRL Musculoskeletal: Flexion and extension of lumbar [spine] somewhat guarded secondary to pain, [antalgic gait noted] positive bilateral leg raise Neurological: Speech clear, no gross sensory deficit Assessment:: Degenerative disc disease of lumbar spine with lumbar radiculopathy symptoms, lumbar facet arthropathy, bilateral hip pain Plan:: Patient is experiencing worsening pain in her low back and legs with limited range of motion and did have positive bilateral leg raises. I have discussed over the risk and benefits of repeat lumbar epidural steroid injection. Patient would like to proceed forward with this plan of care. Patient is not on any blood thinners. Patient did also state that she had weakness and often felt like she would drag her left leg in comparison to her right. I have also discussed with the patient that it may be beneficial to send her for referral to neurosurgery. Patient is agreeable with this plan of care. We will send her to a neurosurgeon around the [facility] if possible if not walking for [place]. Patient will be scheduled for an LESI L4-L5 under fluoroscopy. Patient has been instructed to contact the clinic with any concerns before the next appointment. Dr. Green has reviewed this note and agrees with this plan of care. This note was dictated using voice recognition software and make contain errors or omissions. [facility] Disclaimer: The information contained in this section may have been updated after the patient was seen, as this information can be updated by other users. Medical History Back Pain DDD (degenerative disc disease), lumbar Hx of fracture of leg right Surgical History History of appendectomy Family History Other No significant family history Social History Smoking Status: Current every day smoker tobacco type: cigarettes packs per day: 2 alcohol intake: never substance use type: denies use current occupational status: other Travel in the last 8 weeks: None household members: spouse housing: apartment marital status: education level: high school service: No caffeine: Yes special aldo needs: No do you feel safe at home: Yes victim of physical abuse: No victim of emotional abuse: No victim of sexual abuse: No would you like helpful sources: No
[2023-10-19 12:44] VITALS: BP 131/89; PULSE 69; RESP 18; O2SAT 97; BMI 21.3
== END ==
LOC: SC.PAIN 11:15
PROVIDERS: PCP Family Medicine; Visit Provider Nurse Practitioner Family
DX: M51.16 Intervertebral disc disorders with radiculopathy, lumbar region (principal); M47.26 Other spondylosis with radiculopathy, lumbar region; M25.551 Pain in right hip; M25.552 Pain in left hip
CPT/HCPCS: 99212; G0463

== ENCOUNTER 2023-11-08 09:32 | Day surgery (SDC) | payer BC, SELFPAY ==
[2023-11-08 10:55] VITALS: BP 135/80; PULSE 78; RESP 18; TEMP 36.2; O2SAT 97; BMI 21.3
[2023-11-08 11:25] VITALS: BP 146/92; PULSE 79; RESP 18; O2SAT 97
--- NOTE | 2023-11-08 11:27 | EXP.PAIN.PRO ---
Procedure Date: 11/08/23 Time: 11:10 Anesthesiologist:: Julio Schroeder CRNA Complications:: None Pre-procedure Diagnosis:: Degenerative disc lumbar spine multilevels. Lumbar radiculopathy. Post-procedure Diagnosis:: Same. Indications for Procedure:: Patient is a very pleasant 58-year-old female comes our clinic today for a lumbar epidural steroid injection at the L4-5 level. Patient had same injection several months ago with significant improvement terms of her overall low back pain. Also, relief with her bilateral hip and leg radicular symptoms. She rates her pain today 6/10. Procedure Details:: Procedure: Lumbar epidural steroid injection under fluoroscopy Informed consent was obtained and the risks and benefits of the procedure were explained to the patient. The patient was taken to the procedure room and noninvasive monitors placed, including noninvasive blood pressure cuff and pulse oximeter. The back was viewed using C-arm Fluoroscopy and prepped using Chloraprep as a cleansing solution and the L4-L5 interspace was palpated. Skin and subcutaneous tissues were anesthetized using lidocaine 1.5% and a 25-gauge needle. After this, an 18-gauge Touhy epidural needle was placed into the L4-L5 interspace and advanced using fluoroscopic guidance and loss of resistance to air until the epidural space was encountered. After confirmation of needle placement in the epidural space, with dye, a solution containing normal saline, 3 mL and Depo-Medrol 80 mg were incrementally injected into the lumbar epidural space. The patient tolerated the procedure well with no complications. The patient was observed in the Pain Clinic and then discharged home neurologically intact. Plan and Disposition:: Patient was discharged without incident.
[2023-11-08 14:24] VITALS: BP 133/85; PULSE 70; RESP 18; O2SAT 97
[2023-11-08] MEDS: methylPREDNISolone ACETATE 80MG/ML VIAL 80 MG (14:24)
[2023-11-08 14:25] VITALS: BP 133/85; PULSE 70; RESP 18; O2SAT 97
== END 2023-11-08 11:25 | disposition home or self-care (01) ==
PROVIDERS: PCP Family Medicine; Visit Provider Nurse Anesthetist, Certified Registered
DX: M51.16 Intervertebral disc disorders with radiculopathy, lumbar region (principal)
CPT/HCPCS: 62323; J1040

== ENCOUNTER 2023-11-23 10:27 | Outpatient (POV) | payer BC, SELFPAY ==
[2023-11-23 10:33] VITALS: BP 154/82; PULSE 90; RESP 18; O2SAT 98; BMI 20.3
--- NOTE | 2023-11-23 10:50 | EXP.PAIN.SOA ---
[facility] Pain Management SOAP Note Subjective:: Patient is a pleasant 58-year-old female who presents today for follow-up of her lumbar epidural steroid injection L4-L5 on 11/08/2023. Today she rates her pain an 8 out of 10. Patient states that the injection did help for more than 50% however it only lasted 4 days. She states that she is back to her baseline and states she continues to have chronic pain in her low back and her legs. She states that she feels like her left leg frequently locks up and she has to drag it across the floor. Patient does state that she continues to have chronic numbness throughout her legs that is often times more prominent in the morning and harder for her to get up and going. Patient denies any new trauma or injury. Patient has tried [id number] medication along with heat and ice and topicals with minimal relief. Patient has had physical therapy and at home exercising and stretching with minimal improvement. She is prescribed gabapentin from her primary care and compounded cream from our office. She is interested in any help we may be able to provide. At her last visit we did send her for referral for neurosurgery in the [facility] however she states that she has not heard any updates. Her Vincent has been reviewed and is appropriate. Review of Systems: General: No recent weight changes, no fever, no sleep disturbances Respiratory: No cough, no shortness of air, no recurring pulmonary infections Cardiovascular/peripheral vascular: No chest pain, no palpitations, no edema, no shortness of breath Gastrointestinal: No new onset incontinence, normal bowel movements reported Genitourinary: No new onset incontinence Musculoskeletal: Low back pain, bilateral hip pain, leg pain Psychiatric: [Normal mood/affect] Neurological: [Denies weakness in extremities], [denies balance issues] Objective:: Physical Exam: General: Alert and oriented x3, no acute distress, pleasant and cooperative Lungs: Respirations even and unlabored, symmetrical chest expansion Eyes: PERRL Musculoskeletal: Flexion and extension of lumbar [spine] somewhat guarded secondary to pain, [antalgic gait noted] Neurological: Speech clear, no gross sensory deficit Assessment:: Degenerative disc disease of lumbar spine with lumbar radiculopathy symptoms, lumbar facet arthropathy, bilateral hip pain, chronic pain syndrome Plan:: Patient continues to experience significant pain throughout her low back and legs. I have discussed with patient that she may benefit from a spinal cord stimulator trial. Risk and benefits and educational handouts were given during today's visit. She states she would like to proceed forward with this plan of care. I will order the patient a psychological evaluation and if she is deemed an appropriate candidate we will proceed forward with the SCS trial at a later date. Patient will return to clinic in 1 month for reevaluation of symptoms and plan of care. Patient has been instructed to contact the clinic with any concerns before the next appointment. Dr. Green has reviewed this note and agrees with this plan of care. This note was dictated using voice recognition software and make contain errors or omissions. [facility] Disclaimer: The information contained in this section may have been updated after the patient was seen, as this information can be updated by other users. Medical History Hx of fracture of leg right Back Pain DDD (degenerative disc disease), lumbar Surgical History History of appendectomy Family History Other No significant family history Social History Smoking Status: Current every day smoker tobacco type: cigarettes packs per day: 2 alcohol intake: never substance use type: denies use current occupational status: other Travel in the last 8 weeks: None household members: spouse housing: apartment marital status: education level: high school service: No caffeine: Yes special aldo needs: No do you feel safe at home: Yes victim of physical abuse: No victim of emotional abuse: No victim of sexual abuse: No would you like helpful sources: No
== END 2023-11-23 23:59 ==
LOC: SC.PAIN 10:27
PROVIDERS: PCP Family Medicine; Visit Provider Nurse Practitioner Family
DX: M51.16 Intervertebral disc disorders with radiculopathy, lumbar region (principal); M47.26 Other spondylosis with radiculopathy, lumbar region; M25.551 Pain in right hip; M25.552 Pain in left hip; G89.4 Chronic pain syndrome
CPT/HCPCS: 99212; G0463

== ENCOUNTER 2024-03-16 12:03 | Outpatient (CLI) | payer BC, SELFPAY ==
[2024-03-16 18:27] LABS: Basophils % 0.7 % (0.1-2.0); Eosinophils # 0.2 K/mm3 (0.0-0.4); Eosinophils % 2.6 % (0.1-12.0); Mean Corpuscular HGB Conc 31.9 g/dL (31.8-35.4); Mean Corpuscular Hemoglobin 28.9 pg (27.0-31.2); Mean Corpuscular Volume 90.4 fl (81-99); Mean Platelet Volume 8.5 fl (7.4-10.4); Monocytes # 0.4 K/mm3 (0.1-1.0); Monocytes % 5.4 % (1.7-9.3); Neutrophils # 3.9 K/mm3 (1.8-7.8); Neutrophils % 60.4 % (37.0-80.0); Platelet Count 264 K/mm3 (142-424); Red Blood Count 4.87 M/mm3 (4.20-5.40); Red Cell Distribution Width 14.1 % (11.5-17.5); White Blood Count 6.5 K/mm3 (4.8-10.8)
[2024-03-16 19:47] LABS: Alanine Aminotransferase 15 U/L (12-78); Albumin Level 3.9 g/dl (3.5-5.0); Albumin/Globulin Ratio 1.4 (1.1-1.8); Alkaline Phosphatase 81 U/L (38-126); Anion Gap 8.4 mEq/L (5-15); Aspartate Amino Transferase 23 U/L (14-36); Bilirubin,Total 0.4 mg/dl (0.2-1.3); Blood Urea Nitrogen 14 mg/dl (7-17); Calcium 9.3 mg/dl (8.4-10.2); Carbon Dioxide 25 mmol/L (22.0-30.0); Chloride 111 mmol/L (98-107); Chol/HDL Ratio 4.7 (1-3.5); Cholesterol 223 mg/dl (140-200); Estimated Glomerular Filt Rate 86 ml/min (>60); GFR (African American) 104 ML/MIN (>60); Globulin 2.7 g/dL (1.3-3.2); Glucose 96 mg/dl (74-100); HDL Cholesterol 47 mg/dl (40-60); Potassium 4.4 mmoL/L (3.5-5.1); Sodium 140 mmol/L (136-145); Total Protein,Serum 6.6 g/dl (6.3-8.2); Triglycerides 124 mg/dl (30-150); VLDL Cholesterol 25 mg/dL (0-40)
[2024-03-16 19:58] LABS: Direct LDL Cholesterol 148.46 mg/dL (100-129)
== END 2024-03-16 23:59 | disposition home or self-care (01) ==
LOC: LAB.DROPOF 03-19 12:04
PROVIDERS: PCP Family Medicine; Visit Provider Family Medicine
DX: M51.36 Other intervertebral disc degeneration, lumbar region (principal); M54.41 Lumbago with sciatica, right side; G89.29 Other chronic pain
CPT/HCPCS: 80050; 80053; 80061; 84443; 85025

== ENCOUNTER 2024-03-19 10:15 | Outpatient (POV) | payer BC, SELFPAY ==
--- NOTE | 2024-03-19 10:30 | EXP.PAIN.SOA ---
[facility] Disclaimer: The information contained in this section may have been updated after the patient was seen, as this information can be updated by other users. Medical History Hx of fracture of leg right Back Pain DDD (degenerative disc disease), lumbar Surgical History H/O abdominal surgery History of surgery on lower extremity Family History Other No significant family history Social History Smoking Status: Current every day smoker tobacco type: cigarettes packs per day: 2 alcohol intake: never substance use type: denies use current occupational status: other Travel in the last 8 weeks: None household members: spouse housing: apartment marital status: education level: high school service: No caffeine: Yes special aldo needs: No do you feel safe at home: Yes victim of physical abuse: No victim of emotional abuse: No victim of sexual abuse: No would you like helpful sources: No PM Subjective & Objective Subjective Subjective:: Patient is a pleasant 59-year-old female who presents today for follow-up of psychological evaluation. Patient rates her pain today a 6 out of 10. She states she has had a recent fall about a week and a half ago. She states she was coming in her patio door and ended up tripping on her purse string causing her to fall. Patient states she has continued to have tenderness all along her right hip and is unsure if she did something more substantial. Patient is still experiencing significant pain that goes from her low back into her legs and does interfere with her ability perform activities of daily living. Patient is prescribed gabapentin from an outside provider and compounded cream from our office. Her Vincent has been reviewed and is appropriate. Review of Systems: General: No recent weight changes, no fever, no sleep disturbances Respiratory: No cough, no shortness of air, no recurring pulmonary infections Cardiovascular/peripheral vascular: No chest pain, no palpitations, no edema, no shortness of breath Gastrointestinal: No new onset incontinence, normal bowel movements reported Genitourinary: No new onset incontinence Musculoskeletal: Low back pain, leg pain, right hip pain Psychiatric: [Normal mood/affect] Neurological: [Denies weakness in extremities], [denies balance issues] Pain at rest (0-10 scale): 6 Objective Objective:: Physical Exam: General: Alert and oriented x3, no acute distress, pleasant and cooperative Lungs: Respirations even and unlabored, symmetrical chest expansion Eyes: PERRL Musculoskeletal: Flexion and extension of right hip somewhat guarded secondary to pain, [antalgic gait noted] Neurological: Speech clear, no gross sensory deficit Has patient had previous pain injection?: No Conservative treatment options previously tried: Home exercise plan Length of treatment: Longer than 6 weeks Meds Home Medications and Allergies Home Medications Medication Instructions Recorded Confirmed Type atorvastatin 20 mg tablet 20 mg PO HS Cholesterol #90 tabs 09/01/23 03/16/24 Rx gabapentin 800 mg tablet 800 mg PO TID Pain #90 tabs 02/01/24 03/16/24 Rx mirtazapine 15 mg tablet (Remeron) 15 mg PO DAILY #30 tabs 02/15/24 03/16/24 Rx New Prescriptions to Start Prescriptions: Allergies Allergy/AdvReac Type Severity Reaction Status Date / Time No Known Allergies Allergy Verified 03/16/24 14:54 Assessment and Plan *Assessment and plan (1) Low back pain: Status: Acute Qualifiers: Chronicity: chronic Back pain laterality: bilateral Sciatica presence: with sciatica Sciatica laterality: sciatica of right side Qualified Code(s): M54.41 - Lumbago with sciatica, right side; G89.29 - Other chronic pain Category: Medical Code(s): M54.50 - Low back pain, unspecified (2) DDD (degenerative disc disease), lumbar: Status: Acute Category: Medical Code(s): M51.36 - Other intervertebral disc degeneration, lumbar region (3) Facet arthropathy, lumbar: Status: Acute Category: Medical Code(s): M47.816 - Spondylosis without myelopathy or radiculopathy, lumbar region (4) Right hip pain: Status: Acute Category: Medical Code(s): M25.551 - Pain in right hip (5) Lumbar radicular pain: Status: Acute Category: Medical Code(s): M54.16 - Radiculopathy, lumbar region Plan Patient is experiencing more pain in and around her right hip related to a recent fall. I will order x-ray imaging to rule out any fractures. Patient was reviewed over her psychological evaluation and was deemed an appropriate candidate for the spinal cord stimulator trial however patient does state that she would like to wait at this time. Patient was counseled that is fine. We will send in a prescription of baclofen 5 mg 3 times daily and provide a 2-week supply of this medication. Patient will return to clinic in 2 weeks for reevaluation of symptoms and plan of care. Patient has been instructed to contact the clinic with any concerns before the next appointment. Dr. Green has reviewed this note and agrees with this plan of care. This note was dictated using voice recognition software and make contain errors or omissions.
[2024-03-19 10:55] VITALS: BP 133/83; PULSE 85; RESP 16; O2SAT 94; BMI 20.9
== END 2024-03-19 23:59 | disposition home or self-care (01) ==
PROVIDERS: PCP Family Medicine; Visit Provider Nurse Practitioner Family
DX: M51.16 Intervertebral disc disorders with radiculopathy, lumbar region (principal); M47.26 Other spondylosis with radiculopathy, lumbar region; M25.551 Pain in right hip; F17.210 Nicotine dependence, cigarettes, uncomplicated; Z73.89 Other problems related to life management difficulty
CPT/HCPCS: 99212; G0463

== ENCOUNTER 2024-03-19 10:37 | Outpatient (CLI) | payer BC, SELFPAY ==
--- NOTE | 2024-03-19 10:41 | XR_ITS ---
FINAL REPORT CLINICAL HISTORY: RECENT FALL COMPARISON: None FINDINGS: AP and frog leg views of the right hip were obtained. There is no prior exam for comparison. There is no acute fracture or dislocation. Joint space is preserved. Soft tissues are within normal limits. IMPRESSION: No acute osseous abnormality of the right hip. If pain persists, MR is recommended. Reviewed, Interpreted and Dictated by Debbie Patel MD Transcribed by Araceli Quinones Authenticated and [facility]
== END 2024-03-19 23:59 | disposition home or self-care (01) ==
LOC: RAD 10:38
PROVIDERS: PCP Family Medicine; Visit Provider Anesthesiology
DX: M25.551 Pain in right hip (principal)
CPT/HCPCS: 73502

== ENCOUNTER 2024-04-04 11:15 | Outpatient (POV) | payer BC, SELFPAY ==
[2024-04-04 11:50] VITALS: BP 131/89; PULSE 77; RESP 16; O2SAT 96; BMI 20.9
--- NOTE | 2024-04-04 11:50 | EXP.PAIN.SOA ---
[facility] Disclaimer: The information contained in this section may have been updated after the patient was seen, as this information can be updated by other users. Medical History (Updated 03/29/24 @ 15:21 by Yesi Sprague APRN) Left serous otitis media Drainage from ear, left Difficulty hearing Otalgia, left ear Hx of fracture of leg Back Pain DDD (degenerative disc disease), lumbar Surgical History H/O abdominal surgery History of surgery on lower extremity Family History Other No significant family history Social History Smoking Status: Current every day smoker tobacco type: cigarettes packs per day: 2 alcohol intake: never substance use type: denies use current occupational status: unemployed Travel in the last 8 weeks: None household members: spouse housing: apartment marital status: education level: high school service: No caffeine: Yes special aldo needs: No do you feel safe at home: Yes victim of physical abuse: No victim of emotional abuse: No victim of sexual abuse: No would you like helpful sources: No PM Subjective & Objective Subjective Subjective:: Patient is a pleasant 59-year-old female who presents today for follow-up right hip x-ray imaging. Today she rates her pain a 6 out of 10. Patient denies any new trauma or injury. She does state that her hip is doing better today. She does states she is also still continuing to use her compounded cream and the baclofen that we sent in at her last visit did significantly improve her overall pain symptoms. Patient was also discussed at her last visit that she was deemed an appropriate candidate for the spinal cord stimulator trial however at that time she wanted to wait. Her Vincent has been reviewed and is appropriate. Review of Systems: General: No recent weight changes, no fever, no sleep disturbances Respiratory: No cough, no shortness of air, no recurring pulmonary infections Cardiovascular/peripheral vascular: No chest pain, no palpitations, no edema, no shortness of breath Gastrointestinal: No new onset incontinence, normal bowel movements reported Genitourinary: No new onset incontinence Musculoskeletal: Low back pain Psychiatric: [Normal mood/affect] Neurological: [Denies weakness in extremities], [denies balance issues] Pain at rest (0-10 scale): 6 Objective Objective:: Physical Exam: General: Alert and oriented x3, no acute distress, pleasant and cooperative Lungs: Respirations even and unlabored, symmetrical chest expansion Eyes: PERRL Musculoskeletal: Flexion and extension of lumbar [spine] somewhat guarded secondary to pain, [antalgic gait noted] Neurological: Speech clear, no gross sensory deficit Has patient had previous pain injection?: No Conservative treatment options previously tried: Home exercise plan Length of treatment: Longer than 6 weeks Meds Home Medications and Allergies Home Medications ?Medication ?Instructions ?Recorded ?Confirmed ?Type atorvastatin 20 mg tablet 20 mg PO HS Cholesterol #90 tabs 09/01/23 03/29/24 Rx gabapentin 800 mg tablet 800 mg PO TID Pain #90 tabs 02/01/24 03/29/24 Rx azelastine 137 mcg (0.1 %) nasal 2 spray intranasal BID #30 mL 03/29/24 03/29/24 Rx spray levocetirizine 5 mg tablet (Xyzal) 5 mg PO DAILY #30 tabs 03/29/24 03/29/24 Rx methylprednisolone 4 mg tablets in See Rx Instructions PO PER PKG DIR 03/29/24 03/29/24 Rx a dose pack (Medrol (Aime)) #21 tabs New Prescriptions to Start Prescriptions: Allergies Allergy/AdvReac Type Severity Reaction Status Date / Time No Known Allergies Allergy Verified 03/29/24 14:56 Assessment and Plan *Assessment and plan (1) Lumbar radicular pain: Status: Acute Category: Medical Code(s): M54.16 - Radiculopathy, lumbar region Plan Patient is doing well with the combination of the compounded cream and baclofen. I did residential youth counselor the patient that I will send in 3-month supply of the baclofen and to just let us know if down the road she would like to try the spinal cord stimulator trial. Patient will return to clinic in 3 months for reevaluation of symptoms and plan of care. Patient has been instructed to contact the clinic with any concerns before the next appointment. Dr. Green has reviewed this note and agrees with this plan of care. This note was dictated using voice recognition software and make contain errors or omissions. All injections are used with Lidocaine or Bupivacaine and Depo Medrol.
== END 2024-04-04 23:59 | disposition home or self-care (01) ==
PROVIDERS: PCP Family Medicine; Visit Provider Nurse Practitioner Family
DX: M54.16 Radiculopathy, lumbar region (principal); F17.210 Nicotine dependence, cigarettes, uncomplicated
CPT/HCPCS: 99212; G0463

== ENCOUNTER 2024-05-24 15:37 | Outpatient (POV) | payer BC, SELFPAY | END 2024-05-24 23:59 | disposition home or self-care (01) | LOC: SC 15:38 | PROVIDERS: Visit Provider Specialist/Technologist | DX: Z00.00 Encounter for general adult medical examination without abnormal findings (principal) ==

== ENCOUNTER 2024-07-17 15:22 | Outpatient (CLI) | payer BC, SELFPAY ==
--- NOTE | 2024-07-17 15:25 | CT_ITS ---
FINAL REPORT TECHNIQUE: Thin section axial CT images of the temporal bones were obtained. Coronal and sagittal reformatted images were also obtained. This study was performed with techniques to keep radiation doses as low as reasonably achievable (ALARA). Individualized dose reduction techniques using automated exposure control or adjustment of mA and/or kV according to the patient's size were employed. CLINICAL HISTORY: .hearing loss left ear and tinnitus COMPARISON: None FINDINGS: Right temporal bone: The internal auditory canal has an unremarkable appearance. The inner ear structures are unremarkable. The external auditory canal has an unremarkable appearance. No abnormality is identified of the middle ear cavity. The ossicles are intact. The mastoid air cells and mastoid antrum have an unremarkable appearance. No bony mass is identified. Left temporal bone: The internal auditory canal has an unremarkable appearance. The inner ear structures are unremarkable. The external auditory canal has an unremarkable appearance. No abnormality is identified of the middle ear cavity. The ossicles are intact. The mastoid air cells and mastoid antrum have an unremarkable appearance. No bony mass is identified. Note is made of flattening of the mandibular condyles bilaterally, consistent with chronic erosion, greater on the right than on the left. The right mandibular condyle demonstrates presumed subchondral cysts. IMPRESSION: Unremarkable temporal bones. Chronic erosion of the mandibular condyles, greater on the right than on the left as described above. Reviewed, Interpreted and Dictated by Ihsan Brooks III, MD Transcribed by Araceli Quinones Authenticated and [facility]
== END 2024-07-17 23:59 | disposition home or self-care (01) ==
LOC: RAD 15:23
PROVIDERS: PCP Family Medicine; Visit Provider Otolaryngology
DX: H69.92 Unspecified Eustachian tube disorder, left ear (principal); H93.12 Tinnitus, left ear; H92.12 Otorrhea, left ear; H90.12 Conductive hearing loss, unilateral, left ear, with unrestricted hearing on the contralateral side
CPT/HCPCS: 70480

== ENCOUNTER 2024-07-30 10:16 | Outpatient (POV) | payer BC, SELFPAY ==
[2024-07-30 10:48] VITALS: BP 131/83; PULSE 82; RESP 16; O2SAT 96; BMI 21.3
--- NOTE | 2024-07-30 11:54 | EXP.PAIN.SOA ---
[facility] Disclaimer: The information contained in this section may have been updated after the patient was seen, as this information can be updated by other users. Medical History Disorder of left eustachian tube Tinnitus, left History of liver injury Conductive hearing loss in left ear moderately sloping primarily conductive loss, left ear per Audiometric. This could include ossicular issues such as otosclerosis or discontinuity High-frequency hearing loss of right ear moderate high frequency hearing loss right ear per Audiometric Left serous otitis media Drainage from ear, left I see no active drainage or signs of perforation Difficulty hearing Otalgia, left ear Hx of fracture of leg right Back Pain DDD (degenerative disc disease), lumbar Surgical History H/O abdominal surgery History of surgery on lower extremity torn liver; broken leg and pelvis Family History Other No significant family history Social History Smoking Status: Current every day smoker tobacco type: cigarettes packs per day: 2 alcohol intake: never substance use type: denies use current occupational status: other household members: spouse housing: apartment marital status: education level: high school service: No caffeine: Yes special aldo needs: No do you feel safe at home: Yes victim of physical abuse: No victim of emotional abuse: No victim of sexual abuse: No would you like helpful sources: No PM Subjective & Objective Subjective Subjective:: Patient is a pleasant 59-year-old female who presents today for 3-month up and medication refill. Today she rates her pain a 6 out of 10. Patient denies any new falls or injuries however does state that she has been having a lot more numbness and tingling down into her bilateral lower extremities to her ankle. Patient states the pain is fairly constant and does interfere with her ability perform activities of daily living such as cooking and cleaning. Patient does state that she feels like her legs will occasionally get much more weak and has difficulty walking due to the pain. Patient has tried oral medications along with heat and ice and topicals with minimal relief. Patient has tried at home stretching exercise for longer than 12 weeks with no additional changes. Patient is currently managed with baclofen from our office. She denies any side effects from this medication and is requesting a refill. She is also prescribed compounded cream. Her Vincent has been reviewed and is appropriate. Review of Systems: General: No recent weight changes, no fever, no sleep disturbances Respiratory: No cough, no shortness of air, no recurring pulmonary infections Cardiovascular/peripheral vascular: No chest pain, no palpitations, no edema, no shortness of breath Gastrointestinal: No new onset incontinence, normal bowel movements reported Genitourinary: No new onset incontinence Musculoskeletal: Low back pain, bilateral leg numbness tingling Psychiatric: [Normal mood/affect] Neurological: [Denies weakness in extremities], [denies balance issues] Pain at rest (0-10 scale): 6 Objective Objective:: Physical Exam: General: Alert and oriented x3, no acute distress, pleasant and cooperative Lungs: Respirations even and unlabored, symmetrical chest expansion Eyes: PERRL Musculoskeletal: Flexion and extension of lumbar [spine] somewhat guarded secondary to pain, [antalgic gait noted] Neurological: Speech clear, no gross sensory deficit FINDINGS: There is grade 1 anterior spondylolisthesis of L4 on 5. The vertebral body heights are preserved. There is no bone marrow edema. There are degenerative endplate changes, most pronounced at L4-5 and L5-S1. Bone marrow is otherwise normal. The cord terminates at L2. There is normal signal within the distal cord. There is no abnormal enhancement in the distal cord. There is no acute paraspinal abnormality. There is no loculated fluid collection. L1-L2: No evidence of disc herniation, canal stenosis or neural foraminal narrowing. L2-L3: An annular disc bulge is present with bilateral facet osteoarthropathy. There is mild left neural foraminal narrowing. L3-L4: An annular disc bulge is present with degenerative endplate changes and facet osteoarthropathy. There is mild left greater than right neural foraminal narrowing. L4-L5: An annular disc bulge is present with degenerative endplate changes and facet osteoarthropathy. There is mild right and moderate left neural foraminal narrowing. L5-S1: An annular disc bulge is present with degenerative endplate changes and facet osteoarthropathy. There is moderate to severe right and mild left neural foraminal narrowing. IMPRESSION: Grade 1 anterior spondylolisthesis of L4 on 5. Multilevel degenerative disc disease. Reviewed, Interpreted and Dictated by Debbie Patel MD Transcribed by Aby Becerra Authenticated and [facility] Has patient had previous pain injection?: No Conservative treatment options previously tried: Home exercise plan Length of treatment: Longer than 12 weeks Meds Home Medications and Allergies Home Medications ?Medication ?Instructions ?Recorded ?Confirmed ?Type atorvastatin 20 mg tablet 20 mg PO HS Cholesterol #90 tabs 09/01/23 07/19/24 Rx sod picosulf 10 mg-magnes 3.5 175 ml PO DAILY 2 doses #350 mL 05/04/24 07/19/24 Rx gram-citric 12 gram/175 mL oral solution (Clenpiq) mirtazapine 15 mg tablet 15 mg PO DAILY 06/18/24 07/19/24 History peg 3350-electrolytes 236 ml PO 06/18/24 07/19/24 History gram-22.74 gram-6.74 gram-5.86 gram solution azelastine 137 mcg (0.1 %) nasal 2 spray intranasal BID #30 mL 07/19/24 07/19/24 Rx spray gabapentin 800 mg tablet 800 mg PO TID Pain #90 tabs 07/19/24 07/19/24 Rx levocetirizine 5 mg tablet (Xyzal) 5 mg PO DAILY #30 tabs 07/19/24 07/19/24 Rx New Prescriptions to Start Prescriptions: Allergies Allergy/AdvReac Type Severity Reaction Status Date / Time No Known Allergies Allergy Verified 07/19/24 10:25 Assessment and Plan *Assessment and plan (1) DDD (degenerative disc disease), lumbar: Status: Acute Category: Medical Code(s): M51.36 - Other intervertebral disc degeneration, lumbar region (2) Lumbar radicular pain: Status: Acute Category: Medical Code(s): M54.16 - Radiculopathy, lumbar region Plan Patient is experiencing worsening pain with numbness and tingling into her bilateral lower extremities. Patient did have limited range of motion of her lumbar spine and a positive leg raise during today's visit. I did discuss with patient that she may benefit from a lumbar epidural steroid injection. Risk and benefits were discussed with the patient and she would like to proceed forward with this plan of care. Patient has tried and failed conservative therapy including continued at home stretching exercise for longer than 12 weeks. Patient will be scheduled for an LESI L4-L5 under fluoroscopy. Patient has had this injection in the past in November that did provide more than 50% relief. I will also send an additional 3-month supply of her baclofen. Patient has been instructed to contact the clinic with any concerns before the next appointment. Dr. Green has reviewed this note and agrees with this plan of care. This note was dictated using voice recognition software and make contain errors or omissions. All injections are used with Lidocaine or Bupivacaine and Depo Medrol.
== END 2024-07-30 23:59 | disposition home or self-care (01) ==
PROVIDERS: PCP Family Medicine; Visit Provider Nurse Practitioner Family
DX: M51.16 Intervertebral disc disorders with radiculopathy, lumbar region (principal); F17.210 Nicotine dependence, cigarettes, uncomplicated; Z73.89 Other problems related to life management difficulty
CPT/HCPCS: 99212; G0463

== ENCOUNTER 2024-08-21 10:16 | Day surgery (SDC) | payer BC, SELFPAY ==
[2024-08-21 10:56] VITALS: BP 159/92; PULSE 80; RESP 16; TEMP 36.4; O2SAT 100; BMI 22.2
[2024-08-21 11:02] VITALS: BP 150/84; PULSE 77; RESP 18; O2SAT 95
[2024-08-21] MEDS: methylPREDNISolone ACETATE 80MG/ML VIAL 80 MG (11:02)
[2024-08-21 11:11] VITALS: BP 150/84; PULSE 77; RESP 18; O2SAT 95
[2024-08-21 11:13] VITALS: BP 145/92; PULSE 73; RESP 16; O2SAT 96
--- NOTE | 2024-08-21 12:25 | EXP.PAIN.PRO ---
Procedure Date: 08/21/24 Time: 11:00 Anesthesiologist:: Julio Schroeder CRNA Complications:: None Pre-procedure Diagnosis:: Degenerative disc lumbar spine multilevels. Lumbar radiculopathy. Post-procedure Diagnosis:: Same. Indications for Procedure:: Patient is a very pleasant 59-year-old female who comes our clinic today for lumbar epidural steroid injection. She describes low lumbar back pain as constant, dull, aching. Patient also reports bilateral hip and leg radicular symptoms. She rates her pain 7/10. Procedure Details:: Procedure: Lumbar epidural steroid injection under fluoroscopy Informed consent was obtained and the risks and benefits of the procedure were explained to the patient. The patient was taken to the procedure room and noninvasive monitors placed, including noninvasive blood pressure cuff and pulse oximeter. The back was viewed using C-arm Fluoroscopy and prepped using Chloraprep as a cleansing solution and the L4-L5 interspace was palpated. Skin and subcutaneous tissues were anesthetized using lidocaine 1.5% and a 25-gauge needle. After this, an 18-gauge Touhy epidural needle was placed into the L4-L5 interspace and advanced using fluoroscopic guidance and loss of resistance to air until the epidural space was encountered. After confirmation of needle placement in the epidural space, with dye, a solution containing normal saline, 3 mL and Depo-Medrol 80 mg were incrementally injected into the lumbar epidural space. The patient tolerated the procedure well with no complications. The patient was observed in the Pain Clinic and then discharged home neurologically intact. Plan and Disposition:: Patient was discharged without incident.
== END 2024-08-21 11:13 | disposition home or self-care (01) ==
LOC: SC.PAINP 10:16
PROVIDERS: PCP Family Medicine; Visit Provider Nurse Anesthetist, Certified Registered
DX: M51.16 Intervertebral disc disorders with radiculopathy, lumbar region (principal)
CPT/HCPCS: 62323; J1010

== ENCOUNTER 2024-09-27 13:10 | Outpatient (POV) | payer MEDICAID, SELFPAY ==
[2024-09-27 13:59] VITALS: BP 139/86; PULSE 96; RESP 18; O2SAT 98; BMI 21.6
--- NOTE | 2024-09-27 14:48 | EXP.PAIN.SOA ---
[facility] Disclaimer: The information contained in this section may have been updated after the patient was seen, as this information can be updated by other users. Medical History Disorder of left eustachian tube Tinnitus, left History of liver injury Conductive hearing loss in left ear moderately sloping primarily conductive loss, left ear per Audiometric. This could include ossicular issues such as otosclerosis or discontinuity High-frequency hearing loss of right ear moderate high frequency hearing loss right ear per Audiometric Left serous otitis media Drainage from ear, left I see no active drainage or signs of perforation Difficulty hearing Otalgia, left ear Hx of fracture of leg right Back Pain DDD (degenerative disc disease), lumbar Surgical History H/O abdominal surgery History of surgery on lower extremity torn liver; broken leg and pelvis Family History Other No significant family history Social History Smoking Status: Current every day smoker tobacco type: cigarettes packs per day: 2 alcohol intake: never substance use type: denies use current occupational status: other Travel in the last 8 weeks: None household members: spouse housing: apartment marital status: education level: high school service: No caffeine: Yes special aldo needs: No do you feel safe at home: Yes victim of physical abuse: No victim of emotional abuse: No victim of sexual abuse: No would you like helpful sources: No PM Subjective & Objective Subjective Subjective:: Patient is a pleasant 59-year-old female who presents today for follow-up of lumbar epidural steroid injection L4-L5 on 08/21/2024. She does rate her pain today 7 out of 10. She states that she had significant improvement of at least 50% following this injection however she felt like it really provided great relief for about 3 good solid days before the pain started to slowly come back. Patient does state that she still having the low back issues with left-sided leg numbness. She states she did recently have a fall however denies any significant injury from it. She states she is still not really sure how she managed to trip. Patient does state that the cold weather does seem like it is aggravated some of her overall pain symptoms as well. She states in the morning it is a lot harder to get up and get moving and that it does ease off some as the day goes on. Patient denies any heart or kidney issues. Patient is currently managed with baclofen 5 mg 3 times daily and did just recently get a 3-month supply of this medication along with compounded cream. She is requesting refills on her cream. Her Vincent has been reviewed and is appropriate. Review of Systems: General: No recent weight changes, no fever, no sleep disturbances Respiratory: No cough, no shortness of air, no recurring pulmonary infections Cardiovascular/peripheral vascular: No chest pain, no palpitations, no edema, no shortness of breath Gastrointestinal: No new onset incontinence, normal bowel movements reported Genitourinary: No new onset incontinence Musculoskeletal: Low back pain, left leg pain Psychiatric: [Normal mood/affect] Neurological: [Denies weakness in extremities], [denies balance issues] Pain at rest (0-10 scale): 7 Objective Objective:: Physical Exam: General: Alert and oriented x3, no acute distress, pleasant and cooperative Lungs: Respirations even and unlabored, symmetrical chest expansion Eyes: PERRL Musculoskeletal: Flexion and extension of lumbar [spine] somewhat guarded secondary to pain, [antalgic gait noted] Neurological: Speech clear, no gross sensory deficit Has patient had previous pain injection?: Yes Percent improvement in pain since last injection: 50% Conservative treatment options previously tried: Home exercise plan Length of treatment: Longer than 12 weeks Meds Home Medications and Allergies Home Medications ?Medication ?Instructions ?Recorded ?Confirmed ?Type atorvastatin 20 mg tablet 20 mg PO HS Cholesterol #90 tabs 09/01/23 09/27/24 Rx azelastine 137 mcg (0.1 %) nasal 2 spray intranasal BID #30 mL 07/19/24 09/27/24 Rx spray gabapentin 800 mg tablet 800 mg PO TID Pain #90 tabs 07/19/24 09/27/24 Rx baclofen 5 mg tablet 5 mg PO TID #90 tabs 07/30/24 09/27/24 Rx New Prescriptions to Start Prescriptions: Allergies Allergy/AdvReac Type Severity Reaction Status Date / Time No Known Allergies Allergy Verified 08/06/24 13:21 Assessment and Plan *Assessment and plan (1) DDD (degenerative disc disease), lumbar: Status: Acute Category: Medical Code(s): M51.369 - Other intervertebral disc degeneration, lumbar region without mention of lumbar back pain or lower extremity pain (2) Low back pain: Status: Acute Qualifiers: Chronicity: chronic Back pain laterality: bilateral Sciatica presence: with sciatica Sciatica laterality: sciatica of right side Qualified Code(s): M54.41 - Lumbago with sciatica, right side; G89.29 - Other chronic pain Category: Medical Code(s): M54.50 - Low back pain, unspecified (3) Facet arthropathy, lumbar: Status: Acute Category: Medical Code(s): M47.816 - Spondylosis without myelopathy or radiculopathy, lumbar region (4) Lumbar radicular pain: Status: Acute Category: Medical Code(s): M54.16 - Radiculopathy, lumbar region Plan I will send in a 2-week prescription of meloxicam 15 mg daily. Patient was counseled to discontinue all other NSAIDs while taking this medication and to take it with food to minimize GI upset. Patient will also be ordered refills on her compounded cream. Patient will return to clinic in 1 month for reevaluation of symptoms and plan of care. Patient has been instructed to contact the clinic with any concerns before the next appointment. Dr. Green has reviewed this note and agrees with this plan of care. This note was dictated using voice recognition software and make contain errors or omissions. All injections are used with Lidocaine, Bupivacaine and Depo Medrol. Occasionally urine drug screen is needed to verify patient's compliance with our office pain contract. This is ordered based off specific treatments related to chronic pain with the potential to abuse certain medications.
== END 2024-09-27 23:59 | disposition home or self-care (01) ==
LOC: SC.PAIN 13:15
PROVIDERS: PCP Family Medicine; Visit Provider Nurse Practitioner Family
DX: M51.16 Intervertebral disc disorders with radiculopathy, lumbar region (principal); G89.29 Other chronic pain; M47.26 Other spondylosis with radiculopathy, lumbar region; F17.210 Nicotine dependence, cigarettes, uncomplicated
CPT/HCPCS: 99212; G0463

== ENCOUNTER 2024-10-18 11:35 | Outpatient (CLI) | payer MEDICAID, SELFPAY ==
[2024-10-18 18:45] LABS: Basophils # 0.1 K/mm3 (0-0.2); Basophils % 0.8 % (0.1-2.0); Eosinophils # 0.2 K/mm3 (0.0-0.4); Eosinophils % 3.6 % (0.1-12.0); Hemoglobin 14.2 g/dL (12.2-16.2); Lymphocytes # 1.6 K/mm3 (0.7-4.5); Lymphocytes % 25.5 % (10-50); Mean Corpuscular HGB Conc 31.6 g/dL (31.8-35.4); Mean Corpuscular Hemoglobin 27.6 pg (27.0-31.2); Mean Corpuscular Volume 87.4 fl (81-99); Mean Platelet Volume 10.8 fl (7.4-10.4); Monocytes # 0.5 K/mm3 (0.1-1.0); Monocytes % 8.3 % (1.7-9.3); Neutrophils # 3.9 K/mm3 (1.8-7.8); Neutrophils % 61.5 % (37.0-80.0); Platelet Count 249 K/mm3 (142-424); Red Blood Count 5.15 M/mm3 (4.20-5.40); Red Cell Distribution Width 14.1 % (11.5-17.5); White Blood Count 6.4 K/mm3 (4.8-10.8)
[2024-10-18 20:00] LABS: Alanine Aminotransferase 18 U/L (12-78); Albumin Level 4.3 g/dl (3.5-5.0); Alkaline Phosphatase 81 U/L (38-126); Anion Gap 13.8 mEq/L (5-15); Aspartate Amino Transferase 27 U/L (14-36); Bilirubin,Total 0.5 mg/dl (0.2-1.3); Blood Urea Nitrogen 13 mg/dl (7-17); Calcium 9.2 mg/dl (8.4-10.2); Carbon Dioxide 25 mmol/L (22.0-30.0); Chloride 106 mmol/L (98-107); Chol/HDL Ratio 5.8 (1-3.5); Cholesterol 209 mg/dl (140-200); Estimated Glomerular Filt Rate 64 ml/min (>60); GFR (African American) 78 ML/MIN (>60); Globulin 2.1 g/dL (1.3-3.2); Glucose 92 mg/dl (74-100); HDL Cholesterol 36 mg/dl (40-60); Potassium 4.8 mmoL/L (3.5-5.1); Sodium 140 mmol/L (136-145); Total Protein,Serum 6.4 g/dl (6.3-8.2); Triglycerides 184 mg/dl (30-150); VLDL Cholesterol 37 mg/dL (0-40)
[2024-10-18 20:22] LABS: Direct LDL Cholesterol 132.08 mg/dL (100-129)
[2024-10-18 20:31] LABS: Thyroid Stimulating Hormone 2.61 uIU/mL (0.465-4.68)
== END 2024-10-18 23:59 | disposition home or self-care (01) ==
LOC: LAB.DROPOF 10-19 09:17
PROVIDERS: PCP Family Medicine; Visit Provider Family Medicine
DX: R53.83 Other fatigue (principal); Z87.828 Personal history of other (healed) physical injury and trauma
CPT/HCPCS: 80053; 80061; 84443; 85025

== ENCOUNTER 2024-10-31 13:05 | Outpatient (POV) | payer MEDICAID, SELFPAY ==
--- NOTE | 2024-10-31 13:08 | A.OFFVIS_ITS ---
[facility] Disclaimer: The information contained in this section may have been updated after the patient was seen, as this information can be updated by other users. Medical History Disorder of left eustachian tube Tinnitus, left History of liver injury Conductive hearing loss in left ear moderately sloping primarily conductive loss, left ear per Audiometric. This could include ossicular issues such as otosclerosis or discontinuity High-frequency hearing loss of right ear moderate high frequency hearing loss right ear per Audiometric Left serous otitis media Drainage from ear, left I see no active drainage or signs of perforation Difficulty hearing Otalgia, left ear Hx of fracture of leg right Back Pain DDD (degenerative disc disease), lumbar Surgical History H/O abdominal surgery History of surgery on lower extremity torn liver; broken leg and pelvis Family History Other No significant family history Social History (Updated 10/18/24 @ 10:41 by May Tompkins MA) Smoking Status: Current every day smoker tobacco type: cigarettes packs per day: 2 alcohol intake: never substance use type: denies use current occupational status: other Travel in the last 8 weeks: None household members: spouse housing: apartment marital status: education level: high school service: No caffeine: Yes special aldo needs: No do you feel safe at home: Yes victim of physical abuse: No victim of emotional abuse: No victim of sexual abuse: No would you like helpful sources: No PM Subjective & Objective Subjective Subjective:: Patient is a pleasant 59-year-old female who presents today for follow-up of lumbar epidural steroid injection L4-L5 on 08/21/2024. Today she rates her pain a 6 out of 10. She denies any new trauma or injury. Patient does states she had approximately 70 percent improvement following this injection. Patient states at that time it was providing significant relief with decreased pain and improved function. She does state just in the last week it has started to slowly increase back up. Patient does state that it is an aching, throbbing sensation with numbness and tingling that does radiate into her legs. Patient does state that she definitely would like to get scheduled for another injection. Patient is prescribed baclofen and compounded cream from our office. She denies any side effects. At our last visit we had sent in a prescription of meloxicam 15 mg daily and she does state that that really did help as well. Her Vincent has been reviewed and is appropriate. Review of Systems: General: No recent weight changes, no fever, no sleep disturbances Respiratory: No cough, no shortness of air, no recurring pulmonary infections Cardiovascular/peripheral vascular: No chest pain, no palpitations, no edema, no shortness of breath Gastrointestinal: No new onset incontinence, normal bowel movements reported Genitourinary: No new onset incontinence Musculoskeletal: Low back pain, bilateral leg pain Psychiatric: [Normal mood/affect] Neurological: [Denies weakness in extremities], [denies balance issues] Pain at rest (0-10 scale): 6 Objective Objective:: Physical Exam: General: Alert and oriented x3, no acute distress, pleasant and cooperative Lungs: Respirations even and unlabored, symmetrical chest expansion Eyes: PERRL Musculoskeletal: Flexion and extension of lumbar [spine] somewhat guarded sec ondary to pain, [antalgic gait noted] positive leg raise Neurological: Speech clear, no gross sensory deficit Has patient had previous pain injection?: Yes Percent improvement in pain since last injection: 50% Conservative treatment options previously tried: Home exercise plan Length of treatment: Longer than 12 weeks Meds Home Medications and Allergies Home Medications ?Medication ?Instructions ?Recorded ?Confirmed ?Type atorvastatin 20 mg tablet 20 mg PO HS Cholesterol #90 tabs 09/01/23 10/18/24 Rx azelastine 137 mcg (0.1 %) nasal 2 spray intranasal BID #30 mL 07/19/24 10/18/24 Rx spray gabapentin 800 mg tablet 800 mg PO TID Pain #90 tabs 07/19/24 10/18/24 Rx baclofen 5 mg tablet 5 mg PO TID #90 tabs 07/30/24 10/18/24 Rx meloxicam 15 mg tablet 15 mg PO DAILY #30 tabs 10/11/24 10/18/24 Rx nicotine 21 mg/24 hr daily 1 patch transdermal DAILY #28 ea 10/18/24 10/18/24 Rx transdermal patch New Prescriptions to Start Prescriptions: Allergies Allergy/AdvReac Type Severity Reaction Status Date / Time No Known Allergies Allergy Verified 10/18/24 10:40 Assessment and Plan *Assessment and plan (1) DDD (degenerative disc disease), lumbar: Status: Acute Category: Medical Code(s): M51.369 - Other intervertebral disc degeneration, lumbar region without mention of lumbar back pain or lower extremity pain (2) Low back pain: Status: Acute Qualifiers: Chronicity: chronic Back pain laterality: bilateral Sciatica presence: with sciatica Sciatica laterality: sciatica of right side Qualified Code(s): M54.41 - Lumbago with sciatica, right side; G89.29 - Other chronic pain Category: Medical Code(s): M54.50 - Low back pain, unspecified (3) Lumbar radicular pain: Status: Acute Category: Medical Code(s): M54.16 - Radiculopathy, lumbar region Plan Patient did have 2 months of relief with her last lumbar epidural that did provide 70% improvement and she is just now starting to experience worsening pa in. She did have limited range of motion lumbar spine with a positive leg raise. I did review over the risk and benefits of repeat injection and she would like to proceed forward with this plan of care. Patient has tried and failed conservative therapy including continued at home stretching and exercise for longer than 12 weeks in between injections. Patient will be scheduled for repeat lumbar epidural steroid injection L4-L5 under fluoroscopy. I will also refill her baclofen and meloxicam. Patient has been instructed to contact the clinic with any concerns before the next appointment. Dr. Green has reviewed this note and agrees with this plan of care. This note was dictated using voice recognition software and make contain errors or omissions. All injections are used with Lidocaine, Bupivacaine and Depo Medrol. Occasionally urine drug screen is needed to verify patient's compliance with our office pain contract. This is ordered based off specific treatments related to chronic pain with the potential to abuse certain medications.
[2024-10-31 13:19] VITALS: BP 136/86; PULSE 80; RESP 18; O2SAT 97; BMI 21.6
== END 2024-10-31 23:59 | disposition home or self-care (01) ==
PROVIDERS: PCP Family Medicine; Visit Provider Nurse Practitioner Family
DX: M51.16 Intervertebral disc disorders with radiculopathy, lumbar region (principal); G89.29 Other chronic pain; F17.210 Nicotine dependence, cigarettes, uncomplicated
CPT/HCPCS: 99212; G0463

== ENCOUNTER 2024-11-27 10:46 | Day surgery (SDC) | payer MEDICAID, SELFPAY ==
[2024-11-27 10:54] VITALS: BP 112/77; PULSE 86; RESP 16; TEMP 36.5; O2SAT 96; BMI 21.6
[2024-11-27 11:14] VITALS: BP 130/89; PULSE 82; RESP 18; O2SAT 97
[2024-11-27] MEDS: methylPREDNISolone ACETATE 80MG/ML VIAL 80 MG (11:14)
[2024-11-27 11:15] VITALS: BP 130/89; PULSE 82; RESP 18; O2SAT 97
[2024-11-27 11:18] VITALS: BP 126/84; PULSE 90; RESP 16; O2SAT 97
--- NOTE | 2024-11-27 11:20 | EXP.PAIN.PRO ---
Procedure Date: 11/27/24 Time: 11:00 Anesthesiologist:: Julio Schroeder CRNA Complications:: None Pre-procedure Diagnosis:: Degenerative disc lumbar spine multilevels. Lumbar radiculopathy. Post-procedure Diagnosis:: Same. Indications for Procedure:: Patient is a pleasant 59-year-old female comes our clinic today for lumbar epidural steroid injection. Patient describes low lumbar back pain as well as bilateral hip and leg radicular symptoms. She has responded well to previous lumbar epidural steroid injection. She rates her pain 7/10. Procedure Details:: Procedure: Lumbar epidural steroid injection under fluoroscopy Informed consent was obtained and the risks and benefits of the procedure were explained to the patient. The patient was taken to the procedure room and noninvasive monitors placed, including noninvasive blood pressure cuff and pulse oximeter. The back was viewed using C-arm Fluoroscopy and prepped using Chloraprep as a cleansing solution and the L4-L5 interspace was palpated. Skin and subcutaneous tissues were anesthetized using lidocaine 1.5% and a 25-gauge needle. After this, an 18-gauge Touhy epidural needle was placed into the L4-L5 interspace and advanced using fluoroscopic guidance and loss of resistance to air until the epidural space was encountered. After confirmation of needle placement in the epidural space, with dye, a solution containing normal saline, 3 mL and Depo-Medrol 80 mg were incrementally injected into the lumbar epidural space. The patient tolerated the procedure well with no complications. The patient was observed in the Pain Clinic and then discharged home neurologically intact. Plan and Disposition:: Patient was discharged without incident.
== END 2024-11-27 11:18 | disposition home or self-care (01) ==
PROVIDERS: PCP Family Medicine; Visit Provider Nurse Anesthetist, Certified Registered
DX: M51.16 Intervertebral disc disorders with radiculopathy, lumbar region (principal)
CPT/HCPCS: 62323; J1010

== ENCOUNTER 2024-11-29 14:39 | Emergency (ER) | payer MEDICAID, SELFPAY ==
[2024-11-29 14:32] VITALS: BP 150/102; PULSE 78; RESP 18; TEMP 36.8; O2SAT 100; BMI 22.3
--- NOTE | 2024-11-29 16:03 | ED_ITS ---
Discharge Plan Disposition Patient Disposition: Home, Self-Care Condition: Good Prescriptions Prescriptions: No Action atorvastatin 20 mg tablet 20 mg PO HS Qty: 90 3RF azelastine 137 mcg (0.1 %) spray,non-aerosol 2 spray intranasal BID Qty: 30 2RF Rx Instructions: administer into each nostril nicotine 21 mg/24 hr patch 24 hour 1 patch transdermal DAILY Qty: 28 10RF gabapentin 800 mg tablet 800 mg PO TID Qty: 90 2RF meloxicam 15 mg tablet 15 mg PO DAILY Qty: 30 2RF baclofen 5 mg tablet 5 mg PO TID Qty: 90 2RF Referrals Follow up/Referrals: Provider,Referral, MD [Primary Care Provider] - See instructions Activity Restrictions/Add. Instructions Additional Instructions/Restrictions: We discussed she may wash with soap and water and keep covered with a clean nonocclusive dressing. Do not put any ointments or creams on the suture lines. Stitches can come out in 5 days. He can return to your PCP [facility] or ER for suture removal. If you have any intractable vomiting intractable headache change in your level of consciousness return to the emergency department. Clinical Impressions Clinical Impression: Forehead laceration Qualifiers: Encounter type: initial encounter Qualified Code(s): S01.81XA - Laceration wit hout foreign body of other part of head, initial encounter Fall Qualifiers: Encounter type: initial encounter Qualified Code(s): W19.XXXA - Unspecified fall, initial encounter Instructions Patient Instructions: DI for Laceration Repair -- Simple, How to Prevent Falls Print Language Print Language: Kosovan Discharge ED Provider: Brent Thakur General Adult HPI <ROGELIO Novak - Last Filed: 11/29/24 22:22> General Chief complaint: Fall Stated complaint: Fall Time Seen by Provider: 11/29/24 16:02 Mode of Arrival: Ambulatory Source of Information: Patient Description of Symptoms (Recalled from ER Triage Doc. by RN): Pt presents via [facility] for evaluation after having a ground level fall. Pt was walking and tripped due to a chair. Pt does not recall what she hit her head on, but has a small laceration to her right forehead. bleeding is controlled. -LOC, -BT BP 158/102 (Manual), HR 93, RR 18, O2 97%, BGL 92 History of Present Illness HPI narrative: Patient presents for evaluation of a fall. Patient was helping her with a lift chair and was turning around in the chair suddenly moved pushing her forward. She landed face first against the floor. She did not lose consciousness however she suffered laceration to her right forehead. She denies any neck pain change in vision sense or smell intractable headache intractable nausea vomiting change in level of consciousness. She denies any dorsal spine tenderness. She denies any chest pain shortness of breath fever chills hemoptysis hematochezia melena nausea vomit diarrhea. Related Data Previous Rx's ?Medication ?Instructions ?Recorded atorvastatin 20 mg tablet 20 mg PO HS Cholesterol #90 tabs 09/01/23 azelastine 137 mcg (0.1 %) nasal 2 spray intranasal BID #30 mL 07/19/24 spray nicotine 21 mg/24 hr daily 1 patch transdermal DAILY #28 ea 10/18/24 transdermal patch baclofen 5 mg tablet 5 mg PO TID #90 tabs 10/31/24 meloxicam 15 mg tablet 15 mg PO DAILY #30 tabs 10/31/24 gabapentin 800 mg tablet 800 mg PO TID Pain #90 tabs 11/02/24 Allergies Allergy/AdvReac Type Severity Reaction Status Date / Time No Known Allergies Allergy Verified 10/18/24 10:40 [facility] <ROGELIO Novak - Last Filed: 11/29/24 22:22> [facility] Disclaimer: The information contained in this section may have been updated after the patient was seen, as this information can be updated by other users. Medical History Disorder of left eustachian tube Tinnitus, left History of liver injury Conductive hearing loss in left ear moderately sloping primarily conductive loss, left ear per Audiometric. This could include ossicular issues such as otosclerosis or discontinuity High-frequency hearing loss of right ear moderate high frequency hearing loss right ear per Audiometric Left serous otitis media Drainage from ear, left I see no active drainage or signs of perforation Difficulty hearing Otalgia, left ear Hx of fracture of leg right Back Pain DDD (degenerative disc disease), lumbar Surgical History H/O abdominal surgery History of surgery on lower extremity torn liver; broken leg and pelvis Family History Other No significant family history Social History Smoking Status: Never smoker alcohol intake: never substance use type: denies use current occupational status: disabled Travel in the last 8 weeks: None household members: spouse housing: apartment marital status: education level: high school service: No caffeine: Yes special aldo needs: No do you feel safe at home: Yes victim of physical abuse: No victim of emotional abuse: No victim of sexual abuse: No would you like helpful sources: No Have you lived/traveled outside [place] in past 30 days?: No Contact w/someone who lives/traveled outside US past 30 days?: No Exposure to someone with infectious disease in past 14 days?: No Do you have a fever (greater than 100.4 F or 38 C)?: No Have you tested positive for COVID-19: No Exposed to someone with COVID-19 in past 14 days?: No Do you have a sore throat?: No Do you have a cough?: No Do you have any weakness?: No Do you have any diarrhea?: No Are you experiencing any unusual bleeding?: No Do you have any muscle aches/pain?: No Do you have any abdominal pain?: No Are you experiencing loss of taste or smell?: No Other Medical History Have you received the Flu Vaccine for this season: No Have you received the Pneumonia Vaccine: No <ROGELIO Novak - Last Filed: 11/29/24 22:22> ROS Obtained: Yes Systems reviewed as appropriate & no additional complaints except as documented Physical Exam <ROGELIO Novak - Last Filed: 11/29/24 22:22> General General appearance: alert and in no apparent distress Respiratory Respiratory exam: Present normal lung sounds bilaterally Cardiovascular Cardiovascular exam: Present regular rate and +S2 Neurological Exam Neurological exam: Present alert and oriented X3 Medical Decision Making <ROGELIO Novak - Last Filed: 11/29/24 22:22> Medical Records Medical records reviewed: Yes I reviewed the patient's medical records. Screening: Per USPSTF and CDC recommendations, given the prevalence of disease in our region, it is our hospital?s policy to screen for HIV and viral Hepatitis for all patients aged 18 and over and those with ongoing risk factors. Vincent Inquiry Pt receiving controlled substance: No Vital Signs: 11/29/24 14:32 11/29/24 16:04 11/29/24 17:00 Temperature 98.2 F Temperature Source Oral Pulse Rate 91 H 78 Pulse Rate [Right] 78 Respiratory Rate 18 Blood Pressure 138/99 H 137/112 H Blood Pressure [Right Arm] 150/102 H Blood Pressure Mean [Right Arm] 118 Blood Pressure Source 02 Sat by Pulse Oximetry 100 97 97 Oxygen Delivery Method Room Air Room Air Room Air 11/29/24 18:45 Temperature 98.2 F Temperature Source Oral Pulse Rate 79 Pulse Rate [Right] Respiratory Rate 17 Blood Pressure 136/95 H Blood Pressure [Right Arm] Blood Pressure Mean [Right Arm] Blood Pressure Source Automatic Cuff 02 Sat by Pulse Oximetry Oxygen Delivery Method Room Air Lab Data Lab results reviewed: Yes I reviewed the patient's lab results. Orders (Tests/Meds): ED MEDICATIONS Discontinued Medications Generic Name Dose Route Start Last Admin Trade Name Bk PRN Reason Stop Dose Admin Acetaminophen 1,000 mg 11/29/24 16:19 11/29/24 16:32 Acetaminophen 500mg Tab PO 11/29/24 16:20 1,000 mg ONCE ONE Administration Lidocaine/Epinephrine 10 ml 11/29/24 16:20 11/29/24 16:31 Lidocaine 1% W/Epi 1:100,000 20ml Vial SQ 11/29/24 16:21 10 ml ONCE ONE Administration Methocarbamol 500 mg 11/29/24 16:19 11/29/24 16:32 Methocarbamol 500mg Tablet PO 11/29/24 16:20 500 mg ONCE ONE Administration Ondansetron HCl 4 mg 11/29/24 16:19 11/29/24 16:32 Ondansetron 4mg Odt SL 11/29/24 16:20 4 mg ONCE ONE Administration ORDERS Category Date Time Status CT cervical spine wo con Stat Cat Scan 11/29/24 16:[address] facial bones wo con Stat Cat Scan 11/29/24 16:[address] head/brain wo con Stat Cat Scan 11/29/24 16:17 Completed Medical Decision Narrative: In summary patient is a 59-year-old female who presents to the emergency department for evaluation of fall and right forehead laceration. Patient is hemodynamically stable upon arrival, afebrile. Physical exam is remarkable for a stellate laceration to the right upper forehead but there is no palpable bony deformity. Pupils are equal round reactive to light, extraocular movements are intact without pain, patient has no C-spine or dorsal spine tenderness and is cleared by [place] C-spine and head injury rules, patient moves all 4 extremities and has full no focal neurologic deficits. Differential diagnosis includes laceration versus skull fracture versus intracranial bleed versus C- spine injury etc. Initial workup will be conducted with CT scan noncontrast of the C-spine head and face. Initial interventions include Tylenol and Zofran. Initial workup reviewed by me and my formal interpretation of imaging shows no evidence of acute fracture or bleed or abnormality prior to radiology read. Please see final report for official interpretation.. Upon repeat evaluation patient report improvement in her pain thus her head wound was repaired primarily with nine 6.0 nylon sutures in interrupted fashion.. Given this patient is appropriate for discharge with wound care instructions and strict return precautions. Patient is up-to-date on her tetanus so it was not given. <Brent Thakur MD - Last Filed: 12/01/24 07:15> Vital Signs: 11/29/24 14:32 11/29/24 16:04 11/29/24 17:00 Temperature 98.2 F Temperature Source Oral Pulse Rate 91 H 78 Pulse Rate [Right] 78 Respiratory Rate 18 Blood Pressure 138/99 H 137/112 H Blood Pressure [Right Arm] 150/102 H Blood Pressure Mean [Right Arm] 118 Blood Pressure Source 02 Sat by Pulse Oximetry 100 97 97 Oxygen Delivery Method Room Air Room Air Room Air 11/29/24 18:45 Temperature 98.2 F Temperature Source Oral Pulse Rate 79 Pulse Rate [Right] Respiratory Rate 17 Blood Pressure 136/95 H Blood Pressure [Right Arm] Blood Pressure Mean [Right Arm] Blood Pressure Source Automatic Cuff 02 Sat by Pulse Oximetry Oxygen Delivery Method Room Air Orders (Tests/Meds): ED MEDICATIONS Discontinued Medications Generic Name Dose Route Start Last Admin Trade Name Freq PRN Reason Stop Dose Admin Acetaminophen 1,000 mg 11/29/24 16:19 11/29/24 16:32 Acetaminophen 500mg Tab PO 11/29/24 16:20 1,000 mg ONCE ONE Administration Lidocaine/Epinephrine 10 ml 11/29/24 16:20 11/29/24 16:31 Lidocaine 1% W/Epi 1:100,000 20ml Vial SQ 11/29/24 16:21 10 ml ONCE ONE Administration Methocarbamol 500 mg 11/29/24 16:19 11/29/24 16:32 Methocarbamol 500mg Tablet PO 11/29/24 16:20 500 mg ONCE ONE Administration Ondansetron HCl 4 mg 11/29/24 16:19 11/29/24 16:32 Ondansetron 4mg Odt SL 11/29/24 16:20 4 mg ONCE ONE Administration ORDERS Category Date Time Status CT cervical spine wo con Stat Cat Scan 11/29/24 16:[address] facial bones wo con Stat Cat Scan 11/29/24 16:[address] head/brain wo con Stat Cat Scan 11/29/24 16:17 Completed Medical Decision Narrative: In summary patient is a 59-year-old female who presents to the emergency department for evaluation of fall and right forehead laceration. Patient is hemodynamically stable upon arrival, afebrile. Physical exam is remarkable for a stellate laceration to the right upper forehead but there is no palpable bony deformity. Pupils are equal round reactive to light, extraocular movements are intact without pain, patient has no C-spine or dorsal spine tenderness and is cleared by [place] C-spine and head injury rules, patient moves all 4 extremities and has full no focal neurologic deficits. Differential diagnosis includes laceration versus skull fracture versus intracranial bleed versus C- spine injury etc. Initial workup will be conducted with CT scan noncontrast of the C-spine head and face. Initial interventions include Tylenol and Zofran. Initial workup reviewed by me and my formal interpretation of imaging shows no evidence of acute fracture or bleed or abnormality prior to radiology read. Please see final report for official interpretation.. Upon repeat evaluation patient report improvement in her pain thus her head wound was repaired primarily with nine 6.0 nylon sutures in interrupted fashion.. Given this patient is appropriate for discharge with wound care instructions and strict return precautions. Patient is up-to-date on her tetanus so it was not given. I was consulted by the MP, and we discussed the complexity of the problems being addressed. I approved the treatment and management plan for this patient's care in the Emergency Department, thus performing a substantive portion of the medical decision making. Brent Thakur MD Procedures <ROGELIO Novak - Last Filed: 11/29/24 22:22> Laceration Laceration 1: Site: face Side (If applicable): right Size (cm): 3 Description: stellate Depth: simple, single layer Local Anesthetic: lidocaine 1% and with epi Amount of anesthesia used (mL): 5 Pre-repair: wound explored, irrigated extensively and deep structures intact Skin layer closed with: nylon Size (cm): 6-0 Number of sutures: 9 Technique: simple, interrupted Critical Care <ROGELIO Novak - Last Filed: 11/29/24 22:22> Critical Care Time Critical Care Time: No
[2024-11-29 16:04] VITALS: BP 138/99; PULSE 91; O2SAT 97
--- NOTE | 2024-11-29 16:17 | CT_ITS ---
PROCEDURE INFORMATION: Exam: CT Maxillofacial Without Contrast Exam date and time: 11/29/2024 5:29 PM Age: 59 years old Clinical indication: Injury or trauma; Fall; Additional info: Fell face forward TECHNIQUE: Imaging protocol: Computed tomography of the face without contrast. Radiation optimization: All CT scans at this facility use at least one of these dose optimization techniques: automated exposure control; mA and/or kV adjustment per patient size (includes targeted exams where dose is matched to clinical indication); or iterative reconstruction. COMPARISON: CT FACIAL BONES WO CON 11/29/2024 5:29 PM FINDINGS: Paranasal sinuses: No air-fluid levels. Orbital cavities: No orbital hemorrhage. Bones: Degenerative change involving the cervical spine. Degenerative change involving the bilateral temporomandibular joints. No acute facial bone fracture. No dislocation. Soft tissues: Right periorbital soft tissue injury. IMPRESSION: No acute facial bone fracture.
--- NOTE | 2024-11-29 16:17 | CT_ITS ---
PROCEDURE INFORMATION: Exam: CT Head Without Contrast Exam date and time: 11/29/2024 5:27 PM Age: 59 years old Clinical indication: Injury or trauma; Fall; Additional info: Fell face forward TECHNIQUE: Imaging protocol: Computed tomography of the head without contrast. Radiation optimization: All CT scans at this facility use at least one of these dose optimization techniques: automated exposure control; mA and/or kV adjustment per patient size (includes targeted exams where dose is matched to clinical indication); or iterative reconstruction. COMPARISON: MR ANGIO HEAD WO CON 10/15/2021 3:53 PM FINDINGS: Brain: Normal. No hemorrhage. Unremarkable white matter. No mass effect. Cerebral ventricles: No ventriculomegaly. Paranasal sinuses: Visualized sinuses are unremarkable. No fluid levels. Mastoid air cells: Visualized mastoid air cells are well aerated. Bones: Facial bones are better evaluated on dedicated exam. No acute calvarial fracture. Soft tissues: Right periorbital soft tissue swelling. IMPRESSION: No acute intracranial abnormality.
--- NOTE | 2024-11-29 16:17 | CT_ITS ---
PROCEDURE INFORMATION: Exam: CT Cervical Spine Without Contrast Exam date and time: 11/29/2024 5:32 PM Age: 59 years old Clinical indication: Injury or trauma; Fall; Additional info: Fell face forward TECHNIQUE: Imaging protocol: Computed tomography of the cervical spine without contrast. Radiation optimization: All CT scans at this facility use at least one of these dose optimization techniques: automated exposure control; mA and/or kV adjustment per patient size (includes targeted exams where dose is matched to clinical indication); or iterative reconstruction. COMPARISON: CR XR MULTIPLE SPINE 6+V 05/02/2019 11:54 AM FINDINGS: Bones: Mild retrolisthesis of C4 on C5. Vertebral body heights are preserved. Non-specific straightening. Xgmd-dl-ncandopo degenerative change about the dens. Mild prevertebral osteophytosis. Bilateral facet joint degenerative change. Multilevel disc space narrowing with degenerative endplate change. No acute cervical spine fracture. Central canal stenosis greatest at C4-C5 and C5-C6, at least mild. Multilevel cervical foraminal stenoses. Lungs: Lung apices are normal. Pleural spaces: No visible pneumothorax. Vasculature: Mild vascular calcification. Soft tissues: Unremarkable. IMPRESSION: No acute cervical spine fracture.
[2024-11-29] MEDS: LIDOCAINE 1% W/EPI 1:100,000 20ML VIAL 10 ML SQ (16:31)
[2024-11-29] MEDS: METHOCARBAMOL 500MG TABLET 500 MG PO (16:32)
[2024-11-29] MEDS: ONDANSETRON 4MG ODT 4 MG SL (16:32)
[2024-11-29] MEDS: ACETAMINOPHEN 500MG TAB 1000 MG PO (16:32)
[2024-11-29 17:00] VITALS: BP 137/112; PULSE 78; O2SAT 97
--- NOTE | 2024-11-29 17:27 | PC.NURSE ---
PT TRANSPORTED TO CT SCAN VIA [facility] WHEELCHA[facility]
[2024-11-29 18:45] VITALS: BP 136/95; PULSE 79; RESP 17; TEMP 36.8; O2SAT 98
== END 2024-11-29 18:46 | disposition home or self-care (01) ==
PROVIDERS: Emergency Provider Emergency Medicine
DX: S01.81XA Laceration without foreign body of other part of head, initial encounter (principal); W19.XXXA Unspecified fall, initial encounter
CPT/HCPCS: 12013; 70450; 70486; 72125; 99284; Q0162

== ENCOUNTER 2024-12-12 15:00 | Outpatient (POV) | payer MEDICAID, SELFPAY ==
[2024-12-12 15:15] VITALS: BP 130/90; PULSE 90; RESP 16; O2SAT 97; BMI 21.6
--- NOTE | 2024-12-12 15:28 | EXP.PAIN.SOA ---
[facility] Disclaimer: The information contained in this section may have been updated after the patient was seen, as this information can be updated by other users. Medical History Disorder of left eustachian tube Tinnitus, left History of liver injury Conductive hearing loss in left ear moderately sloping primarily conductive loss, left ear per Audiometric. This could include ossicular issues such as otosclerosis or discontinuity High-frequency hearing loss of right ear moderate high frequency hearing loss right ear per Audiometric Left serous otitis media Drainage from ear, left I see no active drainage or signs of perforation Difficulty hearing Otalgia, left ear Hx of fracture of leg right Back Pain DDD (degenerative disc disease), lumbar Surgical History H/O abdominal surgery History of surgery on lower extremity torn liver; broken leg and pelvis Family History Other No significant family history Social History Smoking Status: Never smoker alcohol intake: never substance use type: denies use current occupational status: other Travel in the last 8 weeks: None household members: spouse housing: apartment marital status: education level: high school service: No caffeine: Yes special aldo needs: No do you feel safe at home: Yes victim of physical abuse: No victim of emotional abuse: No victim of sexual abuse: No would you like helpful sources: No PM Subjective & Objective Subjective Subjective:: Patient is a pleasant 59-year-old female who presents today for follow-up of lumbar epidural steroid injection L4-L5 on 11/27/2024. Patient does state that she did have 100% relief lasting a couple of days with this injection. Patient does state that she does do a lot of physical activity and was actually helping her with his lift recliner where she ended up tripping and falling and hitting her face. Patient does present today with a black eye and a cut on her forehead. Patient does not believe that she did anything significant but is still sore related to this. Patient does state that due to her 's condition that there is a lot that she has to do on a daily basis and so the pain is presents a lot more frequently. Patient is currently managed with baclofen 5 mg 3 times daily and meloxicam 15 mg a day. She denies any side effects. She is also prescribed compounded cream. Her Vincent has been reviewed and is appropriate. Review of Systems: General: No recent weight changes, no fever, no sleep disturbances Respiratory: No cough, no shortness of air, no recurring pulmonary infections Cardiovascular/peripheral vascular: No chest pain, no palpitations, no edema, no shortness of breath Gastrointestinal: No new onset incontinence, normal bowel movements reported Genitourinary: No new onset incontinence Musculoskeletal: Low back pain Psychiatric: [Normal mood/affect] Neurological: [Denies weakness in extremities], [denies balance issues] Pain at rest (0-10 scale): 7 Objective Objective:: Physical Exam: General: Alert and oriented x3, no acute distress, pleasant and cooperative Lungs: Respirations even and unlabored, symmetrical chest expansion Eyes: PERRL Musculoskeletal: Flexion and extension of lumbar [spine] somewhat guarded secondary to pain, [antalgic gait noted] Neurological: Speech clear, no gross sensory deficit Has patient had previous pain injection?: Yes Percent improvement in pain since last injection: 100% Conservative treatment options previously tried: Home exercise plan Length of treatment: Longer than 12 weeks Meds Home Medications and Allergies Home Medications ?Medication ?Instructions ?Recorded ?Confirmed ?Type atorvastatin 20 mg tablet 20 mg PO HS Cholesterol #90 tabs 09/01/23 12/12/24 Rx azelastine 137 mcg (0.1 %) nasal 2 spray intranasal BID #30 mL 07/19/24 12/12/24 Rx spray nicotine 21 mg/24 hr daily 1 patch transdermal DAILY #28 ea 10/18/24 12/12/24 Rx transdermal patch baclofen 5 mg tablet 5 mg PO TID #90 tabs 10/31/24 12/12/24 Rx meloxicam 15 mg tablet 15 mg PO DAILY #30 tabs 10/31/24 12/12/24 Rx gabapentin 800 mg tablet 800 mg PO TID Pain #90 tabs 11/02/24 12/12/24 Rx New Prescriptions to Start Prescriptions: Allergies Allergy/AdvReac Type Severity Reaction Status Date / Time No Known Allergies Allergy Verified 12/04/24 14:12 Assessment and Plan *Assessment and plan (1) DDD (degenerative disc disease), lumbar: Status: Acute Category: Medical Code(s): M51.369 - Other intervertebral disc degeneration, lumbar region without mention of lumbar back pain or lower extremity pain (2) Low back pain: Status: Acute Qualifiers: Chronicity: chronic Back pain laterality: bilateral Sciatica presence: with sciatica Sciatica laterality: sciatica of right side Qualified Code(s): M54.41 - Lumbago with sciatica, right side; G89.29 - Other chronic pain Category: Medical Code(s): M54.50 - Low back pain, unspecified (3) Facet arthropathy, lumbar: Status: Acute Category: Medical Code(s): M47.816 - Spondylosis without myelopathy or radiculopathy, lumbar region Plan Patient did have significant improvement following her lumbar epidural however did then experience a fall causing worsening pain symptoms. I did discuss with the patient that I will refill her meloxicam and also change her baclofen to 10 mg 3 times daily as needed. Patient denied any side effects to the baclofen and states it does not make her fatigued. Patient will return to clinic in 1 month for reevaluation of symptoms and plan of care. Patient has been instructed to contact the clinic with any concerns before the next appointment. Dr. Green has reviewed this note and agrees with this plan of care. This note was dictated using voice recognition software and make contain errors or omissions. All injections are used with Lidocaine, Bupivacaine and Depo Medrol. Occasionally urine drug screen is needed to verify patient's compliance with our office pain contract. This is ordered based off specific treatments related to chronic pain with the potential to abuse certain medications.
== END 2024-12-12 23:59 | disposition home or self-care (01) ==
PROVIDERS: PCP Family Medicine; Visit Provider Nurse Practitioner Family
DX: M51.369 Other intervertebral disc degeneration, lumbar region without mention of lumbar back pain or lower extremity pain (principal); M54.41 Lumbago with sciatica, right side; G89.29 Other chronic pain; M47.816 Spondylosis without myelopathy or radiculopathy, lumbar region
CPT/HCPCS: 99212; G0463

== ENCOUNTER 2025-01-09 14:21 | Outpatient (POV) | payer MEDICAID, SELFPAY ==
[2025-01-09 14:39] VITALS: BP 114/81; PULSE 83; RESP 16; O2SAT 95; BMI 21.6
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
== END 2025-01-09 23:59 | disposition home or self-care (01) ==
PROVIDERS: PCP Family Medicine; Visit Provider Nurse Practitioner Family
DX: M51.369 Other intervertebral disc degeneration, lumbar region without mention of lumbar back pain or lower extremity pain (principal)
CPT/HCPCS: 99212; G0463

== ENCOUNTER 2025-04-03 10:34 | Emergency (ER) | payer MEDICAID, SELFPAY ==
--- NOTE | 2025-04-03 10:37 | XR_ITS ---
FINAL REPORT CLINICAL HISTORY: fall, pain COMPARISON: None FINDINGS: LEFT FEMUR Two views demonstrate no acute fracture or dislocation. The joint spaces appear normal. No acute soft tissue abnormality is seen. IMPRESSION: No acute bony abnormality. Reviewed, Interpreted and Dictated by Debbie Patel MD Transcribed by Kamilah Terry Authenticated and [facility]
--- NOTE | 2025-04-03 10:37 | XR_ITS ---
FINAL REPORT CLINICAL HISTORY: fall, pain COMPARISON: None FINDINGS: An AP view of the pelvis and two views of the left hip were obtained. There is no acute fracture or dislocation. Joint space is preserved. Remaining osseous pelvis is without acute abnormality. Soft tissues are unremarkable. IMPRESSION: No acute osseous abnormality of the left hip. Reviewed, Interpreted and Dictated by Debbie Patel MD Transcribed by Kamilah Terry Authenticated and [facility]
--- NOTE | 2025-04-03 10:37 | XR_ITS ---
FINAL REPORT CLINICAL HISTORY: fall, pain FINDINGS: AP, lateral and oblique views of the left knee were obtained. There is no prior exam for comparison. There is no acute osseous abnormality of the left knee. The joint space is preserved. The soft tissues are normal. There is no joint effusion. IMPRESSION: No acute osseous abnormality of the left knee. Reviewed, Interpreted and Dictated by Debbie Patel MD Transcribed by Kamilah Terry Authenticated and [facility]
[2025-04-03 10:41] VITALS: BP 128/86; PULSE 84; RESP 18; TEMP 37.1; O2SAT 97; BMI 21.6
--- NOTE | 2025-04-03 10:42 | HMH.EDGENADL ---
Discharge Plan Disposition Patient Disposition: Home, Self-Care Condition: Good Prescriptions Prescriptions: No Action atorvastatin 20 mg tablet 20 mg PO HS Qty: 90 3RF azelastine 137 mcg (0.1 %) spray,non-aerosol 2 spray intranasal BID Qty: 30 2RF Rx Instructions: administer into each nostril nicotine 21 mg/24 hr patch 24 hour 1 patch transdermal DAILY Qty: 28 10RF mupirocin 2 % ointment 1 applic topical TID Qty: 15 0RF gabapentin 800 mg tablet 800 mg PO TID Qty: 90 2RF meloxicam 15 mg tablet See Rx Instructions .ROUTE .COMPLEX Qty: 30 2RF Dose Instruction: TAKE ONE TABLET BY MOUTH EVERY DAY Rx Instructions: TAKE ONE TABLET BY MOUTH EVERY DAY baclofen 5 mg tablet 5 mg PO TID Qty: 90 2RF baclofen 10 mg tablet 10 mg PO TID Qty: 90 2RF Referrals Follow up/Referrals: Gato Victor DO [Staff Physician, Orthopedics] - See instructions Provider,Referral, [Referring, Medical] - See instructions Activity Restrictions/Add. Instructions Additional Instructions/Restrictions: You were evaluated in the emergency department today. X-rays do not show any broken bones, but is possible you could have injured soft tissue or cartilage. Please follow-up closely with orthopedics as well as your primary care provider. Also follow-up closely with pain management. Rest, ice, and elevate your leg to reduce pain and swelling. Return to the emergency department right away for new or worsening symptoms Clinical Impressions Clinical Impression: Fall, Acute pain of left knee Stand Alone Forms Stand Alone Forms: Work/School Release Instructions Patient Instructions: How to Prevent Falls, DI for Knee Pain Print Language Print Language: Portuguese Discharge ED Provider: Mariely Reinoso General Adult HPI General Chief complaint: Fall Stated complaint: Fall Time Seen by Provider: 04/03/25 10:36 History of Present Illness HPI narrative: This patient is a 60-year-old female with a history of COPD, neurogenic claudication who is followed by pain management, frequent falls presenting to the emergency department for evaluation of concern for left knee pain after mechanical ground-level fall. Patient reports that she was feeling fine this morning and brought her into the hospital for an ultrasound, and while walking and she states that her left foot got caught on the ground up underneath her, causing her to trip and fall on her left knee. She did not hit her head or lose consciousness. Her only pain is left knee pain at this time. She states that that happens to her frequently, as she feels like it is hard to lift her left foot off the ground and symptoms that gets caught. She states it feels like there is something catching in her hip. She states that she is awaiting another pain management visit to discuss this. No other concerns or complaints noted. She does not take blood thinners or aspirin. Related Data Previous Rx's ?Medication ?Instructions ?Recorded atorvastatin 20 mg tablet 20 mg PO HS Cholesterol #90 tabs 09/01/23 azelastine 137 mcg (0.1 %) nasal 2 spray intranasal BID #30 mL 07/19/24 spray nicotine 21 mg/24 hr daily 1 patch transdermal DAILY #28 ea 10/18/24 transdermal patch baclofen 5 mg tablet 5 mg PO TID #90 tabs 10/31/24 mupirocin 2 % topical ointment 1 applic topical TID #15 grams 12/14/24 baclofen 10 mg tablet 10 mg PO TID #90 tabs 01/09/25 gabapentin 800 mg tablet 800 mg PO TID Pain #90 tabs 01/30/25 meloxicam 15 mg tablet See Rx Instructions .Route 03/25/25 .COMPLEX #30 tabs Allergies Allergy/AdvReac Type Severity Reaction Status Date / Time No Known Allergies Allergy Verified 03/22/25 13:43 [facility] Disclaimer: The information contained in this section may have been updated after the patient was seen, as this information can be updated by other users. 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 Left serous otitis media Drainage from ear, left Difficulty hearing Otalgia, left ear Hx of fracture of leg Back Pain DDD (degenerative disc disease), lumbar Surgical History H/O abdominal surgery History of surgery on lower extremity Family History Other No significant family history Social History Smoking Status: Current every day smoker tobacco type: cigarettes packs per day: 2 alcohol intake: never substance use type: denies use current occupational status: other Travel in the last 8 weeks?: None household members: spouse housing: apartment marital status: education level: high school service: No caffeine: Yes special aldo needs: No do you feel safe at home: Yes victim of physical abuse: No victim of emotional abuse: No victim of sexual abuse: No would you like helpful sources: No Have you lived/traveled outside US in past 30 days?: No Contact w/someone who lives/traveled outside US past 30 days?: No Exposure to someone with infectious disease in past 14 days?: No Do you have a fever (greater than 100.4 F or 38 C)?: No Have you tested positive for COVID-19?: No Exposed to someone with COVID-19 in past 14 days?: No Do you have a sore throat?: No Do you have a cough?: No Do you have any weakness?: No Do you have any diarrhea?: No Are you experiencing any unusual bleeding?: No Do you have any muscle aches/pain?: No Do you have any abdominal pain?: No Are you experiencing loss of taste or smell?: No Other Medical History Have you received the Flu Vaccine for this season: No Have you received the Pneumonia Vaccine: No ROS Obtained: Yes All systems reviewed & no additional complaints except as documented Physical Exam General General appearance: alert and in no apparent distress Head Head exam: atraumatic and normocephalic Eye Eye exam: Present normal appearance, PERRL and EOMI ENT ENT exam: Present normal exam, normal oropharynx, mucous membranes moist and normal external ear exam Neck Neck exam: Present normal inspection, full ROM and trachea midline; Absent tenderness Chest Chest inspection: Present normal inspection and symmetric chest wall rise; Absent tenderness Respiratory Respiratory exam: Present normal lung sounds bilaterally; Absent respiratory distress, wheezes, stridor or accessory muscle use Cardiovascular Cardiovascular exam: Present regular rate and normal rhythm Abdominal Exam Abdominal exam: Present soft; Absent distention, tenderness or guarding Extremities Exam Extremities exam: Present full ROM, tenderness (Left knee joint), normal capillary refill and other (All compartments are soft, neurovascularly intact distally. No open skin wounds. No significant bruising.); Absent edema Back Exam Back exam: Present normal inspection and full ROM; Absent tenderness Neurological Exam Neurological exam: Present alert, oriented X3, CN II-XII intact and normal gait; Absent motor sensory deficit Psychiatric Psychiatric exam: Present normal affect and normal mood Skin Skin exam: Present warm and dry Medical Decision Making Medical Records Medical records reviewed: Yes I reviewed the patient's medical records. Screening: Per USPSTF and CDC recommendations, given the prevalence of disease in our region, it is our hospital?s policy to screen for HIV and viral Hepatitis for all patients aged 18 and over and those with ongoing risk factors. Vincent Inquiry Pt receiving controlled substance: No Vital Signs: 04/03/25 10:41 04/03/25 10:49 04/03/25 10:49 Temperature 98.7 F 98.7 F Temperature Source Oral Oral Pulse Rate 84 Pulse Rate [Right Radial] 84 Respiratory Rate 18 18 Blood Pressure 128/86 Blood Pressure [Right Arm] 128/86 Blood Pressure Mean [Right Arm] 100 Blood Pressure Source Automatic Cuff Blood Pressure Source [Right Arm] Automatic Cuff Blood Pressure Position Supine Blood Pressure Position [Right Arm] Sitting 02 Sat by Pulse Oximetry 97 97 97 Oxygen Delivery Method Room Air Room Air Room Air 04/03/25 12:02 Temperature 98.0 F Temperature Source Pulse Rate 89 Pulse Rate [Right Radial] Respiratory Rate 19 Blood Pressure 131/89 Blood Pressure [Right Arm] Blood Pressure Mean [Right Arm] Blood Pressure Source Blood Pressure Source [Right Arm] Blood Pressure Position Blood Pressure Position [Right Arm] 02 Sat by Pulse Oximetry Oxygen Delivery Method Lab Data Lab results reviewed: Yes I reviewed the patient's lab results. Orders (Tests/Meds): ED MEDICATIONS Discontinued Medications Generic Name Dose Route Start Last Admin Trade Name Bk PRN Reason Stop Dose Admin Acetaminophen 1,000 mg 04/03/25 10:37 04/03/25 10:44 Acetaminophen 500mg Tab PO 04/03/25 10:38 1,000 mg ONCE ONE Administration Ibuprofen 800 mg 04/03/25 10:37 04/03/25 10:44 Ibuprofen 400 Mg Tablet PO 04/03/25 10:38 800 mg ONCE ONE Administration ORDERS Category Date Time Status Femur XR left 2 views [XR femur LT 2V] Stat Exams 04/03/25 10:37 Completed Hip XR left minimum 2 views [XR hip LT 2-3V w/pelvis] Exams 04/03/25 10:37 Completed Stat Knee XR left 3 views [XR knee LT 3V] Stat Exams 04/03/25 10:37 Completed Medical Decision Narrative: In summary, this patient is a 60-year-old female presenting to the Emergency Department for evaluation of left knee pain after a ground-level fall onto her left knee. Differential diagnoses considered include but are not limited to fracture, contusion, strain/pain, ligamentous/cartilaginous injury. She notes frequent falls as a result of feeling like it is hard to pick her left foot up off the ground. She does follow with pain management for degenerative disc disease and neurogenic claudication. Ruling out the most morbid conditions drove assessment. It should be noted patient's history includes degenerative disc disease and neurogenic claudication as above, tobacco dependence which may or may not be at goal therapy. This complicates all aspects of care by increasing patient's risk for morbidity. I reviewed patient's past medical records and noted prior evaluations by pain management in the past. On exam, the patient has tenderness to palpation of left knee but otherwise exam is reassuring. She is neurovascularly intact distally. She did not hit her head or lose consciousness and takes no blood thinners or aspirin. Workup included left hip and pelvis x-ray, femur x-ray, and knee x-ray. Patient was given oral Tylenol and ibuprofen for pain. I independently interpreted x-ray prior to the radiologist read and noted no acute fracture. Please see their read for final interpretation. Ultimately, I feel she is appropriate for discharge with follow-up with orthopedics with prescriptions for diclofenac and prednisone for symptomatic improvement. Strict return precautions given Critical Care Critical Care Time Critical Care Time: No
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
[2025-04-03] MEDS: ACETAMINOPHEN 500MG TAB 1000 MG PO (10:44)
[2025-04-03] MEDS: IBUPROFEN 400 MG TABLET 800 MG PO (10:44)
[2025-04-03 10:49] VITALS: BP 128/86; PULSE 84; RESP 18; TEMP 37.1; O2SAT 97
--- NOTE | 2025-04-03 11:46 | PC.NURSE ---
rounded on patient, hooked patient back up to vitals at this time.
--- NOTE | 2025-04-03 11:54 | PC.NURSE ---
patient stated she is able to ambulate, no c/o pain at this time.
[2025-04-03 12:02] VITALS: BP 131/89; PULSE 89; RESP 19; TEMP 36.7; O2SAT 96
== END 2025-04-03 12:03 | disposition home or self-care (01) ==
PROVIDERS: Emergency Provider Emergency Medicine; PCP Family Medicine
DX: M25.562 Pain in left knee (principal); W19.XXXA Unspecified fall, initial encounter
CPT/HCPCS: 73502; 73552; 73562; 99284

== ENCOUNTER 2025-04-08 15:21 | Outpatient (CLI) | payer MEDICAID, SELFPAY ==
--- OUTSIDE RECORDS SUMMARY | 2025-04-08 15:24 | XMS_ITS | Clinical Summary ---
Author Organization [facility] Address [address] [place] [address] Phone Care Team Providers Care Mechanical Engineering Director Name Role Phone Unavailable Primary Care Provider [...] different from the original. 03/03/16-Patient dismissed from [facility] for Multiple No Shows. - jmw [...] patient's age to complete this topic [place] [address] [place] [address] MEDICAID Member Subscriber Plan / Payer (Ef fective 2013-Present) Name:Sonja Russell Relation to Subscriber:Self Name:Sonja Russell Payer ID:Not on file Group ID:Not on file Type:Not on file Address: [place] [id number] [facility] MEDICAID Member Subscriber Plan / Payer (Ef fective 2013-Present) Name:Sonja Russell Relation to Subscriber:Self Name:Sonja Russell Payer ID:Not on file Group ID:Not on file Type:Not on file Address: [place] [id number]
--- NOTE | 2025-04-08 15:30 | CT_ITS ---
FINAL REPORT TECHNIQUE: Axial CT images of the chest were obtained without contrast. Low-dose protocol was utilized. This study was performed with techniques to keep radiation doses as low as reasonably achievable (ALARA). Individualized dose reduction techniques using automated exposure control or adjustment of mA and/or kV according to the patient's size were employed. CLINICAL HISTORY: lung cancer screening; 46 yr smoker/2 packs daily, current smoker, 2ppd for 46 years COMPARISON: None FINDINGS: CT CHEST WITHOUT, LOW DOSE SCREENING CT Di Vol: 2.90 mGy DLP: 109.16 mGy*cm There are densely calcified left hilar lymph nodes. The heart size is normal. There is no pleural or pericardial effusion. The lung windows show a noncalcified nodule in the anterior right upper lobe measuring 5 mm on image 27 of series 604. There is also a 4 mm nodule on image 21 of series 604 in the right upper lobe.. Limited images of the upper abdomen demonstrate no acute findings. IMPRESSION: Right upper lobe nodules. LR Category 2: 12 month follow-up low-dose chest CT is recommended per Fleischner criteria. Reviewed, Interpreted and Dictated by Cory Soto MD Transcribed by Tash Saunders Authenticated and [facility]
== END 2025-04-08 23:59 | disposition home or self-care (01) ==
LOC: RAD 15:22
PROVIDERS: PCP Family Medicine; Visit Provider Family Medicine
DX: Z12.2 Encounter for screening for malignant neoplasm of respiratory organs (principal); R91.8 Other nonspecific abnormal finding of lung field; F17.210 Nicotine dependence, cigarettes, uncomplicated
CPT/HCPCS: 71271

== ENCOUNTER 2025-04-10 13:36 | Outpatient (POV) | payer MEDICAID, SELFPAY ==
--- OUTSIDE RECORDS SUMMARY | 2025-04-10 13:38 | XMS_ITS | Clinical Summary ---
Author Organization [facility] Address [address] [place] [address] Phone Care Team Providers Care Igniter Capper Name Role Phone Unavailable Primary Care Provider [...] different from the original. 03/03/16-Patient dismissed from [facility] for Multiple No Shows. - jmw [...] patient's age to complete this topic [place] [address] [place] [address] MEDICAID Member Subscriber Plan / Payer (Ef fective 2013-Present) Name:Sonja Russell Relation to Subscriber:Self Name:Sonja Russell Payer ID:Not on file Group ID:Not on file Type:Not on file Address: [place] [id number] [facility] MEDICAID Member Subscriber Plan / Payer (Ef fective 2013-Present) Name:Sonja Russell Relation to Subscriber:Self Name:Sonja Russell Payer ID:Not on file Group ID:Not on file Type:Not on file Address: [place] [phone]
--- OUTSIDE RECORDS SUMMARY | 2025-04-10 13:38 | XMS_ITS | Clinical Summary ---
Author Organization [facility] Address [address] [place] [id number] Phone Care Team Providers Care Manager Delivery Name Role Phone Ricki Ulloa MD [phone] Conditions or Problems No information available. Medications No information available. Medications Administered No information available. Allergies, Adverse Reactions, Alerts No information available. Results No information available. Plan of Care No information available. Procedures No information available. Vital Signs No information available. Immunizations No information available. Advance Directives No information available.
--- NOTE | 2025-04-10 14:13 | EXP.PAIN.SOA ---
[facility] Disclaimer: The information contained in this section may have been updated after the patient was seen, as this information can be updated by other users. 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 Left serous otitis media Drainage from ear, left Difficulty hearing Otalgia, left ear Hx of fracture of leg Back Pain DDD (degenerative disc disease), lumbar Surgical History H/O abdominal surgery History of surgery on lower extremity Family History Other No significant family history Social History Smoking Status: Current every day smoker tobacco type: cigarettes packs per day: 2 pack-years: 92 alcohol intake: never substance use type: denies use current occupational status: other Travel in the last 8 weeks?: None household members: spouse housing: apartment marital status: education level: high school service: No caffeine: Yes special aldo needs: No do you feel safe at home: Yes victim of physical abuse: No victim of emotional abuse: No victim of sexual abuse: No would you like helpful sources: No Have you lived/traveled outside US in past 30 days?: No Contact w/someone who lives/traveled outside US past 30 days?: No Exposure to someone with infectious disease in past 14 days?: No Do you have a fever (greater than 100.4 F or 38 C)?: No Have you tested positive for COVID-19?: No Exposed to someone with COVID-19 in past 14 days?: No Do you have a sore throat?: No Do you have a cough?: No Do you have any weakness?: No Do you have any diarrhea?: No Are you experiencing any unusual bleeding?: No Do you have any muscle aches/pain?: No Do you have any abdominal pain?: No Are you experiencing loss of taste or smell?: No PM Subjective & Objective Subjective Subjective:: Patient is a pleasant 60-year-old female who presents today for worsening low back and left hip pain. She rates it a 5 out of 10. Patient states that she is actually feeling like she is dragging the left leg a lot and it is even causing her to stumble. Patient states that she has had a couple falls even due to this. She states the pain is interfering with her ability perform activities of daily living such as cooking and cleaning. Patient is currently managed with baclofen 10 mg 3 times a day, meloxicam 15 mg a day and compounded cream. She denies any side effects or any need for refills currently. Her Vincent has been reviewed and is appropriate. Review of Systems: General: No recent weight changes, no fever, no sleep disturbances Respiratory: No cough, no shortness of air, no recurring pulmonary infections Cardiovascular/peripheral vascular: No chest pain, no palpitations, no edema, no shortness of breath Gastrointestinal: No new onset incontinence, normal bowel movements reported Genitourinary: No new onset incontinence Musculoskeletal: Low back pain, left hip pain Psychiatric: [Normal mood/affect] Neurological: [Denies weakness in extremities], [denies balance issues] Pain at rest (0-10 scale): 5 Objective Objective:: Physical Exam: General: Alert and oriented x3, no acute distress, pleasant and cooperative Lungs: Respirations even and unlabored, symmetrical chest expansion Eyes: PERRL Musculoskeletal: Flexion and extension of lumbar [spine] somewhat guarded secondary to pain, [antalgic gait noted] point tenderness along left SI and left greater trochanteric bursa with positive left Chau's, Tee's, Gaenslen's, compression and distraction exam Neurological: Speech clear, no gross sensory deficit Has patient had previous pain injection?: No Conservative treatment options previously tried: Home exercise plan Length of treatment: Longer than 12 weeks Meds Home Medications and Allergies Home Medications ?Medication ?Instructions ?Recorded ?Confirmed ?Type atorvastatin 20 mg tablet 20 mg PO HS Cholesterol #90 tabs 09/01/23 03/22/25 Rx azelastine 137 mcg (0.1 %) nasal 2 spray intranasal BID #30 mL 07/19/24 03/22/25 Rx spray nicotine 21 mg/24 hr daily 1 patch transdermal DAILY #28 ea 10/18/24 03/22/25 Rx transdermal patch baclofen 5 mg tablet 5 mg PO TID #90 tabs 10/31/24 03/22/25 Rx mupirocin 2 % topical ointment 1 applic topical TID #15 grams 12/14/24 03/22/25 Rx baclofen 10 mg tablet 10 mg PO TID #90 tabs 01/09/25 03/22/25 Rx gabapentin 800 mg tablet 800 mg PO TID Pain #90 tabs 01/30/25 03/22/25 Rx meloxicam 15 mg tablet See Rx Instructions .Route 03/25/25 Rx .COMPLEX #30 tabs New Prescriptions to Start Prescriptions: Allergies Allergy/AdvReac Type Severity Reaction Status Date / Time No Known Allergies Allergy Verified 03/22/25 13:43 Assessment and Plan *Assessment and plan (1) Sacroiliitis: Status: Acute Category: Medical Code(s): M46.1 - Sacroiliitis, not elsewhere classified (2) Greater trochanteric bursitis: Status: Acute Category: Medical Code(s): M70.60 - Trochanteric bursitis, unspecified hip Plan Patient is experiencing worsening pain along her low back and left hip with limited range of motion. Patient did have point tenderness along her left SI and left greater trochanteric bursa during today's exam. I did discuss with patient that I do believe she would benefit from a left SI and left greater trochanteric bursa injection. Risk and benefits were discussed with the patient and she would like to proceed forward with this plan of care. Patient has had chronic low back pain for longer than a year and has failed conservative measures such as oral medication, heat and ice, topicals, at home stretching exercise for longer than 12 weeks. Patient was counseled that if she does end up getting significant relief with her initial SI injection that we will plan on additional in future with the possibility of her being a potential candidate of a SI fusion in future. This will be a diagnostic SI injection with less than 1 mL of solution to be injected. Patient will be scheduled for a left SI and left bursa injection under fluoroscopy. I will also order x-ray imaging of her lumbar spine and left hip due to the worsening symptoms and altered gait. Patient has been instructed to contact the clinic with any concerns before the next appointment. Dr. Green has reviewed this note and agrees with this plan of care. This note was dictated using voice recognition software and make contain errors or omissions. All injections are used with Lidocaine, Bupivacaine and dexamethasone unless diagnostic in which case there is no steroids injected. Occasionally urine drug screen is needed to verify patient's compliance with our office pain contract. This is ordered based off specific treatments related to chronic pain with the potential to abuse certain medications.
--- NOTE | 2025-04-10 14:21 | XR_ITS ---
FINAL REPORT CLINICAL HISTORY: Left hip pain COMPARISON: 04/03/2025 FINDINGS: LEFT HIP 2 views of the left hip are obtained. There is no acute fracture or dislocation. Visualized joint spaces are normally aligned. There is no acute soft tissue abnormality. IMPRESSION: No acute bony abnormality. Reviewed, Interpreted and Dictated by Cory Soto MD Transcribed by Keya Esteban Authenticated and [facility]
--- NOTE | 2025-04-10 14:21 | XR_ITS ---
FINAL REPORT CLINICAL HISTORY: Low back pain COMPARISON: 04/03/2025 FINDINGS: LUMBAR SPINE AP and lateral views were obtained. There is no acute fracture. There is minimal spondylolisthesis of L4 on L5. Moderate facet sclerosis is seen of the lower lumbar spine. There is moderate disc space narrowing at L5-S1. Vertebrae are normal height. Prevertebral soft tissues are unremarkable. IMPRESSION: Degenerative changes without acute bony abnormality. Reviewed, Interpreted and Dictated by Cory Soto MD Transcribed by Keya Esteban Authenticated and [facility]
[2025-04-10 14:27] VITALS: BP 121/86; PULSE 95; RESP 14; O2SAT 95; BMI 21.6
== END 2025-04-10 23:59 | disposition home or self-care (01) ==
PROVIDERS: PCP Family Medicine; Visit Provider Nurse Practitioner Family
DX: M46.1 Sacroiliitis, not elsewhere classified (principal); M70.62 Trochanteric bursitis, left hip; Z79.1 Long term (current) use of non-steroidal anti-inflammatories (NSAID); Z79.899 Other long term (current) drug therapy
CPT/HCPCS: 72100; 73502; 99212; G0463

== ENCOUNTER 2025-05-14 13:41 | Day surgery (SDC) | payer MEDICAID, SELFPAY ==
[2025-05-14 13:45] VITALS: BP 143/86; PULSE 87; RESP 16; O2SAT 96; BMI 21.6
[2025-05-14] MEDS: DEXAMETHASONE 10MG/ML 1ML VIAL 10 MG (14:02)
[2025-05-14 14:03] VITALS: BP 135/94; PULSE 90; RESP 18; O2SAT 95
[2025-05-14] MEDS: LIDOCAINE 1% 5ML PF VIAL 5 ML (14:03)
[2025-05-14] MEDS: BUPIVACAINE 0.25% 10ML INJ 25 MG IJ (14:03)
[2025-05-14 14:05] VITALS: BP 135/94; PULSE 92; RESP 18; O2SAT 95
--- NOTE | 2025-05-14 14:07 | P.PCN_ITS ---
Procedure Date: 05/14/25 Time: 13:40 Anesthesiologist:: Hakan Schroeder CRNA Complications:: None Pre-procedure Diagnosis:: Left sacroiliitis. Left trochanteric bursitis. Post-procedure Diagnosis:: Same Indications for Procedure:: Patient is a very pleasant 60-year-old female who comes our clinic today for a left sacroiliac joint injection of cortisone local anesthetic and left trochanteric bursa injection of cortisone and local anesthetic. She describes left posterior hip pain as constant, dull, sharp, stabbing. Also, left lateral hip pain that is sharp and stabbing. She is having difficulty with ambulation. Difficulty with sitting. This is due to the pain described above. She rates her pain 7/10. Procedure Details:: Procedure:Left trochanteric bursa injection under fluoroscopy We then moved to the left trochanteric bursa.~ C-arm fluoroscopy was used to view the left greater trochanter.~ The skin and subcutaneous tissues overlying the left greater trochanter were anesthetized using lidocaine, 1.5% and a 25- gauge needle.~ After this, a 22-gauge spinal needle was inserted and advanced until it contacted the left greater trochanter.~ Dye was injected and good spread was seen throughout the left trochanteric bursa. After this, approximately 5 mL of bupivacaine, 0.25% and dexamethasone 10 mg was incrementally injected into the left trochanteric bursa.~ The patient tolerated the procedure well with no complications. Procedure: Left sacroiliac injection under fluoroscopy Informed consent was obtained and the risk and benefits of the procedure were explained to the patient.~ The patient was taken to the procedure room and noninvasive monitors were placed including noninvasive blood pressure cuff and pulse oximeter.~ The patient was placed prone on the procedure table.~ The~ left hip was cleansed using Betadine as a cleansing solution.~ C-arm fluorosocpy was used to view the left SI joint.~ The skin and subcutaneous tissues were anesthetized using Lidocaine 1.5% and a 25-gauge needle.~ After this, a 22-gauge spinal needle was inserted under fluoroscopic guidance into the inferior aspect of the left SI joint.~ Omnipaque dye was injected and a good spread was seen throughout the joint.~ After this, approximately 5 mL of bupivacaine 0.25% and dexamethasone 10 mg was incrementally injected into the sacroiliac joint.~ The patient tolerated the procedure well with no complications.~ The patient was observed in the Pain Clinic for a period of 30-45 minutes, then discharged home neurologically intact.~ Plan and Disposition:: Patient was discharged without incident.
[2025-05-14 14:09] VITALS: BP 120/69; PULSE 85; RESP 18; O2SAT 96
== END 2025-05-14 14:09 | disposition home or self-care (01) ==
PROVIDERS: PCP Family Medicine; Visit Provider Nurse Anesthetist, Certified Registered
DX: M70.62 Trochanteric bursitis, left hip (principal); M46.1 Sacroiliitis, not elsewhere classified; M51.369 Other intervertebral disc degeneration, lumbar region without mention of lumbar back pain or lower extremity pain; F17.210 Nicotine dependence, cigarettes, uncomplicated; Z79.899 Other long term (current) drug therapy
CPT/HCPCS: 20610; G0260; J0665; J1100; J2003

== ENCOUNTER 2025-06-21 13:01 | Outpatient (CLI) | payer MEDICAID, SELFPAY ==
[2025-06-21 19:26] LABS: Hematocrit 43.8 % (37.0-47.0); Hemoglobin 14.3 g/dL (12.2-16.2); Immature Granulocytes % 0.1 %; Mean Corpuscular HGB Conc 32.6 g/dL (31.8-35.4); Mean Corpuscular Hemoglobin 27.8 pg (27.0-31.2); Mean Corpuscular Volume 85.2 fl (81-99); Nucleated Red Blood Cells % 0 %; Platelet Count 274 K/mm3 (142-424); Red Blood Count 5.14 M/mm3 (4.20-5.40); Red Cell Distribution Width-SD 42.9 fL; White Blood Count 8.1 K/mm3 (4.8-10.8)
[2025-06-21 19:43] LABS: Alanine Aminotransferase 10 U/L (12-78); Albumin Level 4.0 g/dl (3.5-5.0); Albumin/Globulin Ratio 1.6 (1.1-1.8); Alkaline Phosphatase 102 U/L (38-126); Anion Gap 13.5 mEq/L (5-15); Aspartate Amino Transferase 20 U/L (14-36); Bilirubin,Total 0.6 mg/dl (0.2-1.3); Blood Urea Nitrogen 14 mg/dl (7-17); Calcium 9.2 mg/dl (8.4-10.2); Carbon Dioxide 22 mmol/L (22.0-30.0); Chloride 107 mmol/L (98-107); Creatinine,Serum 0.80 mg/dl (0.52-1.04); Estimated Glomerular Filt Rate 73 ml/min (>60); GFR (African American) 89 ML/MIN (>60); Globulin 2.5 g/dL (1.3-3.2); Glucose 101 mg/dl (74-100); Potassium 4.5 mmoL/L (3.5-5.1); Sodium 138 mmol/L (136-145); Total Protein,Serum 6.5 g/dl (6.3-8.2)
[2025-06-21 20:12] LABS: Thyroid Stimulating Hormone 2.02 uIU/mL (0.465-4.68)
[2025-06-21 20:40] LABS: Hepatitis C Ab Qual. W/ RFX NEGATIVE (Negative)
[2025-06-23 06:43] LABS: Hepatitis B Surface Antigen Negative (Negative)
--- OUTSIDE RECORDS SUMMARY | 2025-06-24 13:12 | XMS_ITS | Clinical Summary ---
Author Organization [facility]3] Address [address] [place] [id number] Phone Care Team Providers Care Jewelry Dipper Name Role Phone Ricki Ulloa MD [phone] Conditions or Problems No information available. Medications No information available. Medications Administered No information available. Allergies, Adverse Reactions, Alerts No information available. Results No information available. Plan of Care No information available. Procedures No information available. Vital Signs No information available. Immunizations No information available. Advance Directives No information available.
== END 2025-06-21 23:59 ==
LOC: LAB.DROPOF 06-24 13:02
PROVIDERS: PCP Family Medicine; Visit Provider Family Medicine
DX: J44.9 Chronic obstructive pulmonary disease, unspecified (principal); R91.8 Other nonspecific abnormal finding of lung field; R29.898 Other symptoms and signs involving the musculoskeletal system; Z72.0 Tobacco use; Z11.59 Encounter for screening for other viral diseases
CPT/HCPCS: 80053; 84443; 85025; 86803; 87340; 87389

== ENCOUNTER 2025-07-08 14:27 | Outpatient (CLI) | payer MEDICAID, SELFPAY ==
--- OUTSIDE RECORDS SUMMARY | 2025-07-08 14:29 | XMS_ITS | Clinical Summary ---
Author Organization [facility] Address [address] [place] [address] Phone Care Team Providers Care Director Of Social Work Name Role Phone Unavailable Primary Care Provider [...] different from the original. 03/03/16-Patient dismissed from [facility] [facility] for Multiple No Shows. - jmw [...] on file Sexual Orientation Not on file Last Filed Vital Signs Vital Sign Reading [...] of 3) 08/22/2021 06/27/2021, 11/02/2019 COVID-19 Vaccine ( - 2024-2 6 season) 2025 07/02/2022, 04/15/2021, 01/28/2021 Influenza Vaccine (#1) 2025 , 06/27/2021, 06/25/2020 DTaP/TDaP/Td (3 - Td or Tdap) 11/02/2029, 06/14/2012 Meningococcal B Vaccine Aged Out No l onger eligible based on patient's age to complete this topic Insurance [place] [address] MEDICAID [facility] MEDICAID
--- OUTSIDE RECORDS SUMMARY | 2025-07-08 14:29 | XMS_ITS | Clinical Summary ---
Author Organization [facility] Address [address] [place] [id number] Phone Care Team Providers Care Leather Scraper Name Role Phone Ricki Ulloa MD Conditions or Problems No information available. Medications No information available. Medications Administered No information available. Allergies, Adverse Reactions, Alerts No information available. Results No information available. Plan of Care No information available. Procedures No information available. Vital Signs No information available. Immunizations No information available. Advance Directives No information available.
--- NOTE | 2025-07-08 15:30 | MM_ITS ---
PROCEDURE INFORMATION: Exam: MG Bilateral Screening 3D Mammography Exam date and time: 07/08/2025 2:46 PM Age: 60 years old Clinical indication: Screening examination; TECHNIQUE: Imaging protocol: Bilateral Screening tomosynthesis and 2D mammography including computer-aided detection (CAD) when performed. COMPARISON: 1. MG DIG MAMM-SCREEN MARIO 01/30/2019 9:38 AM 2. MG DMSB DIGITAL MAMM-SCREEN BILATERAL 06/25/2010 4:54 PM FINDINGS: MAMMOGRAPHY: Breast composition: The breasts are heterogeneously dense, which may obscure small masses. Mass: No suspicious masses. Architectural distortion: No suspicious distortion. Calcifications: No suspicious calcifications. Asymmetric density: None. Skin thickening: None. Axillary adenopathy: None. IMPRESSION: No mammographic evidence of malignancy. Annual screening is recommended unless otherwise clinically indicated. ASSESSMENT: BI-RADS Category 1: Negative.
== END 2025-07-08 23:59 | disposition home or self-care (01) ==
LOC: RAD 14:28
PROVIDERS: PCP Family Medicine; Visit Provider Family Medicine
DX: Z12.31 Encounter for screening mammogram for malignant neoplasm of breast (principal); R92.333 Mammographic heterogeneous density, bilateral breasts
CPT/HCPCS: 77063; 77067